=== PATIENT | female | born 1945 | race Caucasian/White ===

== ENCOUNTER → 2023-04-18 12:51 | Outpatient (REF) | payer MEDICARE, BC, SELFPAY ==
[2023-04-18 13:35] LABS: % Basophils 0.8 % (0-2); % Eosinophils 1.5 % (0-6); % Immature Granulocytes 0.4 % (0-0.5); % Lymphocytes 41.7 % (20.5-51.1); % Monocytes 7.6 % (1.7-9.3); Absolute Basophils 0.1 10^3/uL (0-0.2); Absolute Eosinophils 0.1 10^3/uL (0-0.7); Absolute Monocytes 0.5 10^3/uL (0.1-0.6); Absolute Neutrophils 3.4 10^3/uL (1.4-6.5); Hematocrit 42.5 % (37.0-47.0); Hemoglobin 14.3 g/dL (12.0-16.0); Mean Corp Hgb Conc. 33.6 g/dL (33.0-37.0); Mean Corpuscular Hgb 28.9 pg (27.0-31.0); Mean Platelet Volume 10.3 fL (7.4-10.4); Nucleated Red Blood Cells % 0 %; Platelet Count 220 10^3/uL (130-400); Red Blood Cell Count 4.94 10^6/uL (4.20-5.40); White Blood Cell Count 7.1 10^3/uL (4.8-10.8)
[2023-04-18 14:29] LABS: Glycohemoglobin (HgbA1c) 6.6 % (4.0-5.6)
[2023-04-18 14:46] LABS: Microalbumin, Random Urine 1.5 mg/dl (0.6-1.7)
[2023-04-18 15:06] LABS: ALT (SGPT) 52 U/L (0-35); AST (SGOT) 42 U/L (14-36); Albumin 4.3 g/dl (3.5-5.0); Alkaline Phosphatase 58 U/L (38-126); Blood Urea Nitrogen 22 mg/dl (7-17); Calcium 10.1 mg/dl (8.4-10.2); Carbon Dioxide 27 mmol/L (22-30); Chloride 99 mmol/L (98-107); Glucose 118 mg/dl (70-99); HDL Cholesterol 39 mg/dl; Iron 90 ug/dl (37-170); LDL Cholesterol, Calculated 53 mg/dl; Potassium 4.7 mmol/L (3.5-5.1); Sodium 140 mmol/L (135-145); Total Bilirubin 0.7 mg/dl (0.2-1.3); Total Cholesterol 146 mg/dl (50-199); Total Protein 7.1 g/dl (6.3-8.2); Triglyceride 272 mg/dl (10-149); Very Low Density Lipoprotein 54 mg/dl (0-30); eGFR > 60.00
[2023-04-18 15:16] LABS: Percent Saturation 24 % (20-50); Total Iron Binding Capacity 370 ug/dl (265-497)
== END ==
LOC: REG 12:51
PROVIDERS: ATTENDING PHYSICIAN Physician Assistant Medical
DX: Z00.01 Encounter for general adult medical examination with abnormal findings (principal); D68.59 Other primary thrombophilia; E11.59 Type 2 diabetes mellitus with other circulatory complications; D50.8 Other iron deficiency anemias
CPT/HCPCS: 36415; 80053; 80061; 82043; 82570; 82728; 83036; 83540; 83550; 85025

== ENCOUNTER → 2023-04-19 15:17 | Outpatient (REF) | payer MEDICARE, BC, SELFPAY | LOC: HWRAD 15:17 | PROVIDERS: ATTENDING PHYSICIAN Physician Assistant Medical | DX: S09.90XA Unspecified injury of head, initial encounter (principal) | CPT/HCPCS: 70450 ==

== ENCOUNTER → 2023-09-14 09:15 | Outpatient (REF) | payer MEDICARE, BC, SELFPAY ==
[2023-09-14 11:16] LABS: ALT (SGPT) 58 U/L (0-35); AST (SGOT) 44 U/L (14-36); Albumin 4.5 g/dl (3.5-5.0); Alkaline Phosphatase 77 U/L (38-126); Blood Urea Nitrogen 22 mg/dl (7-17); Calcium 9.9 mg/dl (8.4-10.2); Carbon Dioxide 25 mmol/L (22-30); Chloride 103 mmol/L (98-107); Glucose 139 mg/dl (70-99); Potassium 4.8 mmol/L (3.5-5.1); Sodium 141 mmol/L (135-145); Total Bilirubin 0.6 mg/dl (0.2-1.3); Total Protein 7.1 g/dl (6.3-8.2); eGFR > 60.00
[2023-09-14 11:42] LABS: Glycohemoglobin (HgbA1c) 7.1 % (4.0-5.6)
== END ==
LOC: REG 09:15
PROVIDERS: ATTENDING PHYSICIAN Internal Medicine; FAMILY PHYSICIAN Physician Assistant Medical
DX: Z00.01 Encounter for general adult medical examination with abnormal findings (principal); D68.59 Other primary thrombophilia; E11.59 Type 2 diabetes mellitus with other circulatory complications; D50.8 Other iron deficiency anemias
CPT/HCPCS: 36415; 80053; 83036

== ENCOUNTER → 2023-11-15 13:27 | Outpatient (REF) | payer MEDICARE, BC, SELFPAY | LOC: RAD 13:27 | PROVIDERS: ATTENDING PHYSICIAN Physician Assistant Medical | DX: M25.561 Pain in right knee (principal) | CPT/HCPCS: 73564 ==

== ENCOUNTER 2023-12-12 10:46 | Emergency (ER) | payer MEDICARE, BC, SELFPAY ==
[2023-12-12 11:15] VITALS: BP 150/93
[2023-12-12 11:30] VITALS: BMI 28.7
--- NOTE | 2023-12-12 11:40 | ED.GENMED ---
History of Present Illness
General
Chief Complaint: Chest Pain
Source: patient
Exam Limitations: none
Time Seen by Provider: 12/12/23 11:19
Nursing documentation reviewed up to this point in time: agreed with
History of Present Illness
History of Present Illness:
Patient is a pleasant 78-year-old female who reports intermittent left upper abdominal pain rating into her left back since yesterday. Patient reports that symptoms are mild and last for a second at a time and go away completely. Patient reports
at times it seems to occur after eating. Patient denies nausea and vomiting. She reports that she gets diarrhea once in a while which she attributes to her metformin. Patient denies specific chest pain, shortness of breath, dizziness and
sweating. Patient reports she is here to make sure that her symptoms are not related to her heart. Patient reports she has no symptoms at all at this time nor any pain. Patient reports that when she takes a deep breath, she is not able to
reproduce the discomfort.
Past History
Past History
ED Past Medical History: GERD, Hypercholesterolemia, NIDDM, Psychiatric (anxiety), Other (Pulmonary Embolism. DVT) and Other (dvt)
ED Past Surgical History: Cholecystectomy, Gynecological (Hysterectomy) and Orthopedic (L total Knee replacement; right and left rotator cuff repairs)
Social History
Tobacco: Non-smoker
Alcohol: Occasional
Drug: None
Personal:
Living: assisted living
Employment: Other
Family History
Family History: Other
Review of Systems
Review of Systems
Allergies reviewed?: Yes
All Other Systems: ROS reviewed and negative except as documented in HPI and ROS
Constitutional: Reports no symptoms
EENT: Reports no symptoms
Respiratory: Reports no symptoms
Cardiac: Reports no symptoms
ABD/GI: Reports abdominal pain and diarrhea
: Reports no symptoms
Musculoskeletal: Reports no symptoms
Skin: Reports no symptoms
Neurological: Reports no symptoms
Endocrine: Reports no symptoms
Hematologic/Lymphatic: Reports no symptoms
Psychiatric: Reports no symptoms
Phy Exam
Physical Exam
Physical Exam:
Physical Exam
General: no apparent distress, not acutely ill. Very well and comfortable appearing, smiling and conversational
Neck: supple. no meningeal signs. normal psoterior pharynx
Heart: s1/s2 regular rate and rhythm, no murmur. equal radial pulses.
Lungs: no acute respiratory distress. clear bilaterally
Abdomen: normal bowel sounds. not tender. no CVAT. Soft, nondistended, no pulsatile mass
Neuro: alert and oriented. no focal neurological deficits
Skin: no rash
Psychiatric: well kept. interactive and cooperative
Extremities: no edema. no calf tenderness. negative homans. good distal pulses
Scores
Heart Score for Chest Pain Patients
STEMI patient?: Not applicable
Course
Orders/Labs/Results
Orders:
Orders
12/12/23 10:49
ECG [Electrocardiogram (*1)] Urgent
Reason for Study: Chest Pain
EKG- Treatment ONCE
12/12/23 11:46
Complete Blood Count/With Diff Urgent
12/12/23 13:13
Comprehensive Metabolic Panel Urgent
Lipase Urgent
Troponin I Urgent
Abnormal Lab Results
12/12/23 12/12/23
11:46 13:13
MPV 10.5 H fL
(7.4-10.4)
BUN 19 H mg/dl
(7-17)
Glucose 110 H mg/dl
(70-99)
AST 38 H U/L
(14-36)
ALT 60 H U/L
(0-35)
12/12/23 11:46
12/12/23 13:13
Vital Signs
Initial and Last Documented VS:
Initial Vital Signs
Temp Pulse Resp BP Pulse Ox
97.5 F 76 18 150/93 96
12/12/23 11:15 12/12/23 11:15 12/12/23 11:15 12/12/23 11:15 12/12/23 11:15
Last Documented Vital Signs
Temp Pulse Resp BP Pulse Ox
97.5 F 76 15 123/88 95
12/12/23 11:15 12/12/23 13:45 12/12/23 13:45 12/12/23 13:00 12/12/23 13:45
MDM/Problems Addressed
Differential Diagnosis Includes:
Gastritis, esophageal spasm, acute pancreatitis, small bowel obstruction, aortic dissection
MDM/Problems Addressed:
Patient presents with acute left upper quadrant pain
Chronic conditions affecting care:
GERD
Acute Exacerbation and/or Progression of Chronic Illness:
Patient's presentation is likely an exacerbation of GERD
*Pulse Oximetry
Patient hypoxic: no
*EKG
Interpreted by ED Provider?: Yes
Interpretation: normal
Comparison EKG: no changes
Rate: normal
Rhythm: sinus
[place]: left axis deviation
Interval: normal interval
QRS Pattern: normal QRS
Ischemia: no ischemia
*Quality Director Interpretation
Rate: normal
Interpretation: normal
Rhythm: sinus
*Critical Care Note
Total Time (30-74mins, 75-104mins- exclusive of procedures): Not Applicable
Data Reviewed
Review of Other/Old Records Reveals: Progress Notes (Office note reviewed from Dr. Moreno from GI from 2019 which shows the patient has a history of GI bleed, GERD and gastritis)
Source: patient
Patient Management
Social determinants of health affecting care: Living situation and Strong social support
Update Note
Update Note:
Patient remains asymptomatic and pain-free for hours in the emergency department. EKG appears nonischemic. Troponin is normal. unlikely to be acute coronary syndrome. Given patient is pain-free, it is unlikely to be aortic dissection. Patient
has had no nausea vomiting to suggest small bowel obstruction.
ED Attending Note
-
Portions of this chart may have been created with voice recognition software.� Occasional wrong word or��sound alike� substitutions may have occurred due to the inherent limitations of voice recognition software.
Discharge Plan
Departure
Patient with high blood pressure during this ER visit?: Yes
Condition: Good
Covid-19: Not Applicable
Discharge Problem:
Abdominal pain, acute, left upper quadrant
Instructions: Acid Reflux and GERD in Adults (DC), BLOOD PRESSURE
Prescriptions:
No Action
amitriptyline 10 MG tablet
10 mg PO HS
escitalopram oxalate 10 MG tablet
20 mg PO BID
clonazepam 0.5 MG tablet
0.25 mg PO HS
glucosamine lundberg 2KCl-chondroit 1 EACH tablet
1 ea PO HS
glycopyrrolate 1 mg Tablet
1 mg PO DAILY
omeprazole [Prilosec] 20 mg Capsule,Delayed Release(Dr/Ec)
20 mg PO DAILY
propranolol 20 mg Tablet
20 mg PO BID
cholecalciferol (vitamin D3) [Vitamin D3] 25 mcg (1,000 unit) Capsule
25 mcg PO DAILY
Xarelto 10 mg Tablet
10 mg PO DAILY
ferrous sulfate [Feosol] 325 MG tablet
325 mg PO HS
atorvastatin [Lipitor] 40 mg Tablet
40 mg PO DAILY
biotin 800 mcg Tablet
800 mcg PO DAILY
ascorbic acid (vitamin C) [Vitamin C] 500 mg Tablet
500 mg PO DAILY
Referrals:
Aixa Bernard PA-C [Family Provider] -
Activity Restrictions/Additional Instructions:
Please restart your omeprazole
Interventions
Interventions:
*Risk Screen - Suicide Last Done: 12/12/23 11:15
*General Assessment Last Done: 12/12/23 11:15
*Neglect/Abuse Screening Last Done: 12/12/23 11:15
*ED COVID-19 Vaccine History Last Done: 12/12/23 11:33
ED- Cardiac Assessment Last Done: 12/12/23 11:32
Discharge Date and Time
Print Language: MACEDONIAN
[2023-12-12 11:55] LABS: % Basophils 0.9 % (0-2); % Eosinophils 2.1 % (0-6); % Immature Granulocytes 0.5 % (0-0.5); % Lymphocytes 36.9 % (20.5-51.1); % Monocytes 6.1 % (1.7-9.3); % Neutrophils 53.5 % (42.2-75.2); Absolute Basophils 0.1 10^3/uL (0-0.2); Absolute Eosinophils 0.2 10^3/uL (0-0.7); Absolute Lymphocytes 2.8 10^3/uL (1.2-3.4); Absolute Monocytes 0.5 10^3/uL (0.1-0.6); Absolute Neutrophils 4.1 10^3/uL (1.4-6.5); Hematocrit 40.8 % (37.0-47.0); Hemoglobin 13.7 g/dL (12.0-16.0); Mean Corp Hgb Conc. 33.6 g/dL (33.0-37.0); Mean Corpuscular Hgb 28.8 pg (27.0-31.0); Mean Corpuscular Volume 85.7 fL (81.0-99.0); Mean Platelet Volume 10.5 fL (7.4-10.4); Nucleated Red Blood Cells % 0 %; Platelet Count 183 10^3/uL (130-400); Red Blood Cell Count 4.76 10^6/uL (4.20-5.40); Red Cell Dist. Width 13.8 % (11.5-14.5); White Blood Cell Count 7.7 10^3/uL (4.8-10.8)
[2023-12-12 12:00] VITALS: BP 140/82
[2023-12-12 13:00] VITALS: BP 123/88
[2023-12-12 13:39] LABS: ALT (SGPT) 60 U/L (0-35); AST (SGOT) 38 U/L (14-36); Albumin 4.4 g/dl (3.5-5.0); Alkaline Phosphatase 75 U/L (38-126); Blood Urea Nitrogen 19 mg/dl (7-17); Calcium 10.1 mg/dl (8.4-10.2); Carbon Dioxide 28 mmol/L (22-30); Chloride 99 mmol/L (98-107); Estimated Creatinine Clearance 63 ml/min; Glucose 110 mg/dl (70-99); Lipase 51 U/L (23-300); Potassium 4.7 mmol/L (3.5-5.1); Sodium 139 mmol/L (135-145); Total Bilirubin 0.4 mg/dl (0.2-1.3); eGFR > 60.00
[2023-12-12 13:50] LABS: Troponin I < 0.012 ng/ml
== END 2023-12-12 14:00 | disposition home or self-care (01) ==
LOC: EMR 10:46
PROVIDERS: EMERGENCY PHYSICIAN Emergency Medicine; FAMILY PHYSICIAN Physician Assistant Medical
DX: R10.12 Left upper quadrant pain (principal); K21.9 Gastro-esophageal reflux disease without esophagitis; E78.00 Pure hypercholesterolemia, unspecified; E11.9 Type 2 diabetes mellitus without complications; F41.9 Anxiety disorder, unspecified; Z86.711 Personal history of pulmonary embolism; Z86.718 Personal history of other venous thrombosis and embolism; Z90.49 Acquired absence of other specified parts of digestive tract; Z90.710 Acquired absence of both cervix and uterus; Z96.659 Presence of unspecified artificial knee joint
CPT/HCPCS: 99283; 80053; 83690; 84484; 85025; 93005

== ENCOUNTER → 2024-02-03 12:37 | Outpatient (REF) | payer MEDICARE, BC, SELFPAY ==
[2024-02-03 13:42] LABS: % Basophils 0.7 % (0-2); % Eosinophils 1.1 % (0-6); % Immature Granulocytes 0.6 % (0-0.5); % Lymphocytes 30.1 % (20.5-51.1); % Monocytes 6.3 % (1.7-9.3); % Neutrophils 61.2 % (42.2-75.2); Absolute Basophils 0.1 10^3/uL (0-0.2); Absolute Eosinophils 0.1 10^3/uL (0-0.7); Absolute Immature Granulocytes 0.1 10^3/uL (0-0.05); Absolute Lymphocytes 2.7 10^3/uL (1.2-3.4); Absolute Monocytes 0.6 10^3/uL (0.1-0.6); Absolute Neutrophils 5.4 10^3/uL (1.4-6.5); Hematocrit 44.9 % (37.0-47.0); Hemoglobin 14.4 g/dL (12.0-16.0); Mean Corp Hgb Conc. 32.1 g/dL (33.0-37.0); Mean Corpuscular Hgb 27.8 pg (27.0-31.0); Mean Corpuscular Volume 86.7 fL (81.0-99.0); Mean Platelet Volume 10.6 fL (7.4-10.4); Nucleated Red Blood Cells % 0 %; Platelet Count 240 10^3/uL (130-400); Red Blood Cell Count 5.18 10^6/uL (4.20-5.40); Red Cell Dist. Width 14.5 % (11.5-14.5); White Blood Cell Count 8.9 10^3/uL (4.8-10.8)
[2024-02-03 14:31] LABS: ALT (SGPT) 52 U/L (0-35); AST (SGOT) 34 U/L (14-36); Albumin 4.9 g/dl (3.5-5.0); Alkaline Phosphatase 76 U/L (38-126); Blood Urea Nitrogen 21 mg/dl (7-17); Carbon Dioxide 22 mmol/L (22-30); Chloride 101 mmol/L (98-107); Glucose 123 mg/dl (70-99); Iron 97 ug/dl (37-170); Potassium 4.7 mmol/L (3.5-5.1); Sodium 141 mmol/L (135-145); Total Bilirubin 0.5 mg/dl (0.2-1.3); Total Protein 8.1 g/dl (6.3-8.2); eGFR > 60.00
[2024-02-03 14:37] LABS: Glycohemoglobin (HgbA1c) 7.1 % (4.0-5.6)
[2024-02-03 14:43] LABS: Percent Saturation 25 % (20-50); Total Iron Binding Capacity 375 ug/dl (265-497)
[2024-02-03 14:59] LABS: TSH Reflex To Free T4 1.07 uIU/ml (0.47-4.68)
[2024-02-03 15:18] LABS: Vitamin B12 726 pg/ml (239-931)
== END ==
LOC: REG 12:37
PROVIDERS: ATTENDING PHYSICIAN Physician Assistant Medical
DX: R41.3 Other amnesia (principal); E11.59 Type 2 diabetes mellitus with other circulatory complications; D50.8 Other iron deficiency anemias
CPT/HCPCS: 36415; 80053; 82607; 82728; 83036; 83540; 83550; 84443; 85025; 86618

== ENCOUNTER → 2024-05-10 11:17 | Outpatient (REF) | payer MEDICARE, BC, SELFPAY | LOC: RAD 11:17 | PROVIDERS: ATTENDING PHYSICIAN Physician Assistant Surgical; FAMILY PHYSICIAN Physician Assistant Medical | DX: M25.512 Pain in left shoulder (principal) | CPT/HCPCS: 73030 ==

== ENCOUNTER → 2024-05-25 12:59 | Outpatient (REF) | payer MEDICARE, BC, SELFPAY ==
[2024-05-25 14:04] LABS: % Basophils 0.9 % (0-2); % Immature Granulocytes 0.9 % (0-0.5); % Lymphocytes 31.2 % (20.5-51.1); % Monocytes 5.6 % (1.7-9.3); % Neutrophils 59.4 % (42.2-75.2); Absolute Basophils 0.1 10^3/uL (0-0.2); Absolute Eosinophils 0.2 10^3/uL (0-0.7); Absolute Immature Granulocytes 0.1 10^3/uL (0-0.05); Absolute Lymphocytes 3.2 10^3/uL (1.2-3.4); Absolute Monocytes 0.6 10^3/uL (0.1-0.6); Hematocrit 41.9 % (37.0-47.0); Hemoglobin 13.7 g/dL (12.0-16.0); Mean Corp Hgb Conc. 32.7 g/dL (33.0-37.0); Mean Corpuscular Hgb 28.3 pg (27.0-31.0); Mean Corpuscular Volume 86.6 fL (81.0-99.0); Nucleated Red Blood Cells % 0 %; Platelet Count 184 10^3/uL (130-400); Red Blood Cell Count 4.84 10^6/uL (4.20-5.40); Red Cell Dist. Width 14.3 % (11.5-14.5); White Blood Cell Count 10.1 10^3/uL (4.8-10.8)
[2024-05-25 14:33] LABS: ALT (SGPT) 67 U/L (0-35); AST (SGOT) 35 U/L (14-36); Albumin 4.8 g/dl (3.5-5.0); Alkaline Phosphatase 78 U/L (38-126); Blood Urea Nitrogen 21 mg/dl (7-17); Carbon Dioxide 28 mmol/L (22-30); Chloride 97 mmol/L (98-107); Glucose 117 mg/dl (70-99); HDL Cholesterol 50 mg/dl; Iron 144 ug/dl (37-170); LDL Cholesterol, Calculated 72 mg/dl; Potassium 4.9 mmol/L (3.5-5.1); Sodium 138 mmol/L (135-145); Total Bilirubin 0.8 mg/dl (0.2-1.3); Total Cholesterol 162 mg/dl (50-199); Total Protein 7.5 g/dl (6.3-8.2); Triglyceride 200 mg/dl (10-149); Very Low Density Lipoprotein 40 mg/dl (0-30); eGFR > 60.00
[2024-05-25 14:45] LABS: Percent Saturation 41 % (20-50); Total Iron Binding Capacity 350 ug/dl (265-497)
[2024-05-25 14:48] LABS: Microalbumin, Random Urine 1.7 mg/dl (0.6-1.7); Microalbumin/creatinine Ratio 15.1 mg/g
[2024-05-26 09:26] LABS: Glycohemoglobin (HgbA1c) 7.6 % (4.0-5.6)
== END ==
LOC: REG 12:59
PROVIDERS: ATTENDING PHYSICIAN Physician Assistant Medical
DX: D50.8 Other iron deficiency anemias (principal); E11.59 Type 2 diabetes mellitus with other circulatory complications; Z00.01 Encounter for general adult medical examination with abnormal findings; D68.59 Other primary thrombophilia
CPT/HCPCS: 36415; 80053; 80061; 82043; 82570; 82728; 83036; 83540; 83550; 85025

== ENCOUNTER → 2024-06-18 14:10 | Outpatient (REF) | payer MEDICARE, BC, SELFPAY | LOC: HWWDC 14:10 | PROVIDERS: ATTENDING PHYSICIAN Physician Assistant Medical | DX: Z12.31 Encounter for screening mammogram for malignant neoplasm of breast (principal) | CPT/HCPCS: 77063; 77067 ==

== ENCOUNTER 2024-07-23 07:47 | Inpatient (IN) | payer MEDICARE, BC, SELFPAY ==
[2024-07-20 14:09] VITALS: BMI 28.8
--- NOTE | 2024-07-20 14:11 | ED.CVA ---
History of Present Illness
General
Chief Complaint: CVA/TIA Symptoms
Source: patient and ambulance crew
Exam Limitations: none
Time Seen by Provider: 07/20/24 14:09
Onset of Stroke Symptoms
Onset of symptoms known: Yes
Date of onset of symptoms: 07/20/24
History of Present Illness
History of Present Illness:
See MDM
Past History
Past History
ED Past Medical History: GERD, Hypercholesterolemia, NIDDM, Psychiatric (anxiety), Other (Pulmonary Embolism. DVT) and Other (dvt)
ED Past Surgical History: Cholecystectomy, Gynecological (Hysterectomy) and Orthopedic (L total Knee replacement; right and left rotator cuff repairs)
Social History
Tobacco: Non-smoker
Alcohol: Occasional
Drug: None
Personal:
Living: assisted living
Employment: Other
Family History
Family History: Other
Phy Exam
Physical Exam
Physical Exam:
See MDM
NIH Stroke Score
Level of Consciousness: 0 - Alert
LOC questions: 0-Answers both correctly
LOC Commands: 0-Performs both correctly
Best Gaze: 0-Normal
Visual Santos: 0=Normal, no visual loss
Facial palsy: 0=Normal, symmetrical
Motor - Right Arm: 0=No drift 10 seconds
Motor - Left Arm: 0=No drift 10 seconds
Motor - Right Le-No drift 5 seconds
Motor - Left Le-No drift 5 seconds
Limb Ataxia: 0-Absent
Sensation: 0-Normal
Best Language: 1-Mild aphasia
Dysarthria: 0-Normal
Extinction and Inattention: 0-No abnormality
Total Score:: 1
Course
Orders/Labs/Results
Orders:
Orders
07/20/24 14:10
Electrocardiogram (*1) Stat
Reason for Study: Other
Other Reason for Exam: neuro symptoms
CT HEAD STROKE ALERT W/o Cont Urgent
Comment:
Reason For Exam: aphasia
CT HEAD/NECK ANG STROKE ALERT Urgent
Comment:
Reason For Exam: aphasia
NEUROLOGY CONSULT Urgent
Consulting Provider: Andria Bajwa
Was physician already notified: Yes
Cardiac Monitoring- Treatment ONCE
EKG- Treatment ONCE
07/20/24 14:11
CT Brain Perfusion Urgent
Comment:
Reason For Exam: aphasia
07/20/24 14:18
Comprehensive Metabolic Panel Urgent
PTT Urgent
Prothrombin Time Urgent
Troponin I Urgent
07/20/24 14:19
Complete Blood Count/With Diff Urgent
07/20/24 15:09
STOOL [C difficile Antigen & Toxins] Urgent
CHEPE Source: Feces/Stool
Specimen Description:
Stool Culture Urgent
CHEPE Source: Feces/Stool
Specimen Description:
Aspirin Chewable [Low Strength Aspirin] 81 mg PO NOW STA
Abnormal Lab Results
07/20/24 07/20/24 07/20/24
14:12 14:18 14:19
RDW 15.5 H %
(11.5-14.5)
MPV 10.7 H fL
(7.4-10.4)
Abs Immat Gran (auto) 0.1 H 10^3/uL
(0-0.05)
Absolute Lymphs (auto) 3.5 H 10^3/uL
(1.2-3.4)
Absolute Monos (auto) 0.9 H 10^3/uL
(0.1-0.6)
Immature Gran % 1.0 H %
(0-0.5)
PT 17.7 H Sec
(11.4-14.6)
BUN 19 H mg/dl
(7-17)
Glucose 151 H mg/dl
(70-99)
AST 45 H U/L
(14-36)
ALT 75 H U/L
(0-35)
POC Glucose 170 H mg/dl
(70-99)
07/20/24 14:19
07/20/24 14:18
Vital Signs
Initial and Last Documented VS:
Initial Vital Signs
Temp Pulse Resp Pulse Ox
98.4 F 87 20 96
07/20/24 14:10 07/20/24 14:10 07/20/24 14:10 07/20/24 14:10
Last Documented Vital Signs
Temp Pulse Resp BP Pulse Ox
98.4 F 87 20 144/76 96
07/20/24 14:10 07/20/24 14:10 07/20/24 14:10 07/20/24 14:14 07/20/24 14:10
MDM/Problems Addressed
Differential Diagnosis Includes:
HPI and MDM Narrative:
78-year-old female presenting as a possible stroke alert. EMS called prior to arrival indicating active strokelike symptoms. Apparently, patient developed right leg heaviness around 11 AM. This was not associated with slurred speech. 911 was
called. EMS indicating that symptoms are improving somewhat. On arrival, patient evaluated by myself. She does have word finding issues placing her NIH stroke scale at 1. She is on Xarelto and states her last dose was this morning. Based on the
Xarelto use, patient is not a TNK candidate. Based on the active aphasia, stroke alert called. Neurology made aware
Physical exam
General: Well appearing and non-toxic
HEENT: protecting airway
Neck: appears supple
CV: No evidence of cyanosis. Regular rate and rhythm
Resp: No accessory muscle use
Abd: Non-distended
Extremities: No deformities
Neuro: alert. Aphasia. NIH stroke scale 1
Psych: Normal affect
Skin: Intact
Problems Addressed including Acute and Chronic Conditions affecting care:
1. Aphasia
Acuity: acute
Prognosis: unstable
Details: Given active symptoms, report called. She is not a TNK candidate
Updates
3 PM on reassessment, all symptoms resolved. Case discussed with neurology again. Will start aspirin and admit
Differential Diagnosis (but not limited to): Stroke, TIA, intracranial hemorrhage
Testing considered: Urinalysis
Drug therapy (if applicable): OTC meds, please see d/c instruction regarding Rx drugs
Amount and/or Complexity of Data Reviewed
Clinical info obtained from: Patient
External data reviewed: N/A
Labs I independently reviewed (but not limited to): White blood cell count normal
Radiology: The CT scan was personally and independently reviewed. In addition, official CT report reviewed.
Pulse Ox: not hypoxic
EKG independently reviewed: N/A
Environmental Program Manager: Sinus rhythm
Critical Care: N/A
Risk of Complication:
Social Determinants of health: Good social support
Discussed with other providers: Neurologist, hospitalist
Escalation of Care includes Admit/Obs: Given TIA with speech involvement, will admit
Occasional wrong word or 'sound a like' substitutions may have occurred due to the inherent limitations of voice recognition software. Read the chart carefully and recognize, using context, where substitutions have occurred.
*Critical Care Note
Total Time (30-74mins, 75-104mins- exclusive of procedures): Not Applicable
ED Attending Note
-
Portions of this chart may have been created with voice recognition software.� Occasional wrong word or��sound alike� substitutions may have occurred due to the inherent limitations of voice recognition software.
Discharge Plan
Departure
Patient Disposition: Admit
Date of Disposition: 07/20/24
Time of Disposition: 15:11
Admit to: Telemetry
Presentation/result/management discussed w/ accepting MD/DO: Hospitalist
Discharge Problem:
Brain TIA
Prescriptions:
No Action
amitriptyline 10 MG tablet
10 mg PO HS
escitalopram oxalate 10 MG tablet
20 mg PO BID
clonazepam 0.5 MG tablet
0.25 mg PO HS
glucosamine lundberg 2KCl-chondroit 1 EACH tablet
1 ea PO HS
glycopyrrolate 1 mg Tablet
1 mg PO DAILY
omeprazole [Prilosec] 20 mg Capsule,Delayed Release(Dr/Ec)
20 mg PO DAILY
propranolol 20 mg Tablet
20 mg PO BID
cholecalciferol (vitamin D3) [Vitamin D3] 25 mcg (1,000 unit) Capsule
25 mcg PO DAILY
Xarelto 10 mg Tablet
10 mg PO DAILY
ferrous sulfate [Feosol] 325 MG tablet
325 mg PO HS
atorvastatin [Lipitor] 40 mg Tablet
40 mg PO DAILY
biotin 800 mcg Tablet
800 mcg PO DAILY
ascorbic acid (vitamin C) [Vitamin C] 500 mg Tablet
500 mg PO DAILY
Interventions
Interventions:
ED- Pulmonary Assessment Last Done: 07/20/24 14:14
ED- Neurological Assessment Last Done: 07/20/24 14:14
ED- Cardiac Assessment Last Done: 07/20/24 14:14
Discharge Date and Time
Print Language: AUSTRIAN
[2024-07-20 14:14] VITALS: BP 144/76
[2024-07-20 14:14] LABS: Glucose - Point of Care 170 mg/dl (70-99)
--- NOTE | 2024-07-20 14:23 | CON.NEURO ---
Consultation
Order
Date of Consultation: 07/20/24
Requesting Provider: Jeffrey Redd DO
Reason for Consult: Stroke alert
Called in: 14:09
Neurology Consultation Note.
HPI:This is a 78-year-old ambidextrous woman who presented to [facility] on July 20, 2024 with right leg weakness and language dysfunction.
She reports that her legs started to 'lose weight,' she could hardly walk because of right leg weakness
The patient states that she has 'never spoken like this' before. She also experienced diarrhea prior to the onset of her neurological symptoms. The patient recalls that she was preparing for an 11 o'clock appointment when the symptoms began. She had
difficulty completing her usual tasks, such as putting away items and preparing for her exercise program.
ER VS:144/76, 87, 20, afebrile.
PDMP:clonazepam 0.5 mg 45 tablets filled in on 05/22/2024, 07/15/2024.
Labs:FS 170.
CT head wo contrast-Moderate atrophy
PMH: PE/DVT, HTN, DLP, DM, MDD, KYUNG, Hiatal hernia, hyperparathyroidism , GERD, OA, migraines
PSH: L TKA, cholecystectomy, ROSARIO/BSO, R Rotator cuff repair, BL cataract surgery
SH:, lives at [place], retired, nonsmoker
All:PNC, Erythromycin
ROS: Limited due to dysphasia
NIH Stroke Scale
1A Level of Consciousness: 0/3
1B LOC Questions: 0/2
1C LOC Commands: 0/2
2 Best Gaze: 0/2
3 Visual: 0/3
4 Facial Palsy: 0/3
5A Motor Arm LEFT: 0/4
5B Motor Arm RIGHT: 0/4
6A Motor Leg LEFT: 0/4
6B Motor Leg RIGHT: 0/4
7 Limb Ataxia: 0/2
8 Sensory: 0/2
9 Best Language: 2/3
10 Dysarthria: 0/2
11 Extinction/Inattention: 0/2
Assessment and Plan:
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
II. HTN, DM
III.KYUNG
-Continue Telemetry monitoring
-Hold Eliquis and start aspirin 81 mg once a day until brain MRI is completed
-Please follow-up CTA head and neck
-PT.
-DVT prophylaxis.
I personally reviewed all radiology and labs along with past medical records pertinent to current medical problems. Total time spent in patient care is 55 minutes.
Thank you for allowing us to participate in the care of this patient. We will continue to follow. Please do not hesitate to contact us with any questions or concerns.
Subjective/Objective
Subjective Data
Date of Service: July 20, 2024
Objective Data
Vital Signs
Temp Pulse Resp BP Pulse Ox
36.9 C 87 20 144/76 96
07/20/24 14:10 07/20/24 14:10 07/20/24 14:10 07/20/24 14:14 07/20/24 14:10
Patient Allergies
erythromycin base Allergy (Verified 09/05/22 18:21)
'Shakey'
Penicillins Allergy (Verified 09/05/22 18:21)
Headache
Medications
-
Home Medications
�Medication �Instructions �Recorded
amitriptyline 10 mg tablet 10 mg PO HS 08/16/15
escitalopram oxalate 10 mg tablet 20 mg PO BID 08/16/15
clonazepam 0.5 mg tablet 0.25 mg PO HS 12/06/18
glucosamine sulf dipotassium Cl 1 ea PO HS 12/15/18
500 mg-chondroitin sulf 400 mg
tablet
ascorbic acid (vitamin C) 500 mg 500 mg PO DAILY 09/03/22
tablet (Vitamin C)
atorvastatin 40 mg tablet (Lipitor) 40 mg PO DAILY 09/03/22
biotin 800 mcg tablet 800 mcg PO DAILY 09/03/22
cholecalciferol (vitamin D3) 25 25 mcg PO DAILY 09/03/22
mcg (1,000 unit) capsule (Vitamin
D3)
ferrous sulfate 325 mg (65 mg 325 mg PO HS 09/03/22
iron) tablet (Feosol)
glycopyrrolate 1 mg tablet 1 mg PO DAILY 09/03/22
omeprazole 20 mg capsule,delayed 20 mg PO DAILY 09/03/22
release
propranolol 20 mg tablet 20 mg PO BID 09/03/22
rivaroxaban 10 mg tablet (Xarelto) 10 mg PO DAILY 09/03/22
Vital Signs and Labs
-
Vital Signs and Labs:
Vital Signs
Temp Pulse Resp BP Pulse Ox
36.9 C 87 20 144/76 96
07/20/24 14:10 07/20/24 14:10 07/20/24 14:10 07/20/24 14:14 07/20/24 14:10
Lab Results
07/20/24 14:19
07/20/24 14:18
PT 17.7 Sec (11.4-14.6) H 07/20/24 14:18
INR 1.43 07/20/24 14:18
APTT 26.5 Sec (23.4-35.0) 07/20/24 14:18
Sodium 142 mmol/L (135-145) 07/20/24 14:18
Potassium 4.9 mmol/L (3.5-5.1) 07/20/24 14:18
BUN 19 mg/dl (7-17) H 07/20/24 14:18
Glucose 151 mg/dl (70-99) H 07/20/24 14:18
Calcium 10.0 mg/dl (8.4-10.2) 07/20/24 14:18
Home Medications
-
Home Medications
amitriptyline 10 mg tablet 10 mg PO HS 08/16/15
escitalopram oxalate 10 mg tablet 20 mg PO BID 08/16/15
clonazepam 0.5 mg tablet 0.25 mg PO HS 12/06/18
glucosamine sulf dipotassium Cl 500 mg-chondroitin sulf 400 mg tablet 1 ea PO HS 12/15/18
ascorbic acid (vitamin C) 500 mg tablet (Vitamin C) 500 mg PO DAILY 09/03/22
atorvastatin 40 mg tablet (Lipitor) 40 mg PO DAILY 09/03/22
biotin 800 mcg tablet 800 mcg PO DAILY 09/03/22
cholecalciferol (vitamin D3) 25 mcg (1,000 unit) capsule (Vitamin D3) 25 mcg PO DAILY 09/03/22
ferrous sulfate 325 mg (65 mg iron) tablet (Feosol) 325 mg PO HS 09/03/22
glycopyrrolate 1 mg tablet 1 mg PO DAILY 09/03/22
omeprazole 20 mg capsule,delayed release 20 mg PO DAILY 09/03/22
propranolol 20 mg tablet 20 mg PO BID 09/03/22
rivaroxaban 10 mg tablet (Xarelto) 10 mg PO DAILY 09/03/22
[2024-07-20 14:31] LABS: % Basophils 1.1 % (0-2); % Eosinophils 5.3 % (0-6); % Lymphocytes 34.4 % (20.5-51.1); % Monocytes 8.4 % (1.7-9.3); % Neutrophils 49.8 % (42.2-75.2); Absolute Basophils 0.1 10^3/uL (0-0.2); Absolute Eosinophils 0.5 10^3/uL (0-0.7); Absolute Immature Granulocytes 0.1 10^3/uL (0-0.05); Absolute Lymphocytes 3.5 10^3/uL (1.2-3.4); Absolute Monocytes 0.9 10^3/uL (0.1-0.6); Absolute Neutrophils 5.1 10^3/uL (1.4-6.5); Hematocrit 41.5 % (37.0-47.0); Hemoglobin 14.1 g/dL (12.0-16.0); Mean Corpuscular Hgb 29.1 pg (27.0-31.0); Mean Corpuscular Volume 85.6 fL (81.0-99.0); Mean Platelet Volume 10.7 fL (7.4-10.4); Nucleated Red Blood Cells % 0 %; Platelet Count 275 10^3/uL (130-400); Red Blood Cell Count 4.85 10^6/uL (4.20-5.40); Red Cell Dist. Width 15.5 % (11.5-14.5); White Blood Cell Count 10.3 10^3/uL (4.8-10.8)
[2024-07-20 14:36] LABS: APTT 26.5 Sec (23.4-35.0); INR 1.43; PT 17.7 Sec (11.4-14.6)
[2024-07-20 14:39] LABS: ALT (SGPT) 75 U/L (0-35); AST (SGOT) 45 U/L (14-36); Alkaline Phosphatase 64 U/L (38-126); Blood Urea Nitrogen 19 mg/dl (7-17); Carbon Dioxide 28 mmol/L (22-30); Chloride 102 mmol/L (98-107); Estimated Creatinine Clearance 63 ml/min; Glucose 151 mg/dl (70-99); Potassium 4.9 mmol/L (3.5-5.1); Sodium 142 mmol/L (135-145); Total Bilirubin 0.6 mg/dl (0.2-1.3); Total Protein 7.7 g/dl (6.3-8.2); eGFR > 60.00
[2024-07-20 14:51] LABS: Troponin I < 0.012 ng/ml
[2024-07-20 15:00] VITALS: BP 138/73
[2024-07-20] MEDS: LOW STRENGTH ASPIRIN 81 MG PO (15:20)
[2024-07-20] MEDS: ZOFRAN 4 MG IV (15:55)
[2024-07-20 16:00] VITALS: BP 155/75
[2024-07-20] MEDS: TYLENOL 650 MG PO (17:23)
--- NOTE | 2024-07-20 17:40 | HPS.HSE ---
Family Physician
-
Family Physician: Aixa Bernard PA-C
Chief Complaint
-
Right Leg Weakness and Speech Issue
History of Present Illness
78-year-old female with past medical history of PE/DVT, HTN, DLP, DM, Anxiety, Hiatal hernia, hyperparathyroidism, GERD, OA and migraines presented with right lower extremity weakness and speech issue/aphasia. She was outside at the gym when she
developed significant brown-colored diarrhea, several episodes, when she came home and apparently, patient developed right leg heaviness around 11 AM. Her symptoms improved since coming to the ER and resolved by the time I saw her later this
afternoon today. She denied any other symptoms or complaints.
Medical History
Past Medical History
Past Medical History: Reports Other (As per HPI above)
Past Surgical History: Reports Cholecystectomy, Gynocological (ROSARIO/BSO), Orthopedic (Left TKA; right and left rotator cuff repairs) and Other (Bilateral cataract surgery)
Social History
Tobacco: Non-smoker
Alcohol: Occasional
Drug: None
Family History
Family History: Not pertinent
Allergies / Home Medications
Allergies reflects when Allergies were last updated in [employer].
Home Medications with original date entered in [employer]
Allergy/Medication List:
Allergies
Allergy/AdvReac Type Severity Reaction Status Date / Time
erythromycin base Allergy 'Shakey' Verified 09/05/22 18:21
Penicillins Allergy Headache Verified 09/05/22 18:21
Home Medications
amitriptyline 10 mg tablet 10 mg PO HS 08/16/15
escitalopram oxalate 10 mg tablet 10 mg PO DAILY 08/16/15
clonazepam 0.5 mg tablet 0.25 mg PO HS 12/06/18
glucosamine sulf dipotassium Cl 500 mg-chondroitin sulf 400 mg tablet 1 ea PO HS 12/15/18
ascorbic acid (vitamin C) 500 mg tablet (Vitamin C) 500 mg PO DAILY 09/03/22
atorvastatin 40 mg tablet (Lipitor) 40 mg PO DAILY 09/03/22
cholecalciferol (vitamin D3) 25 mcg (1,000 unit) capsule (Vitamin D3) 25 mcg PO DAILY 09/03/22
ferrous sulfate 325 mg (65 mg iron) tablet (Feosol) 325 mg PO HS 09/03/22
glycopyrrolate 1 mg tablet 1 mg PO DAILY 09/03/22
omeprazole 20 mg capsule,delayed release 20 mg PO DAILY 09/03/22
propranolol 20 mg tablet 20 mg PO BID 09/03/22
rivaroxaban 10 mg tablet (Xarelto) 10 mg PO DAILY 09/03/22
clonazepam 0.5 mg tablet 0.5 mg PO BIDPRN PRN anxiety 07/20/24
metformin 500 mg tablet 500 mg PO BID 07/20/24
Review of Systems
-
A 12 point ROS was completed and negative except as noted: Yes
Physical Exam
Vital Signs
Vital Signs
Temp Pulse Resp BP Pulse Ox
98.4 F 85 17 155/75 96
07/20/24 14:10 07/20/24 16:15 07/20/24 16:15 07/20/24 16:00 07/20/24 16:15
Physical Exam
General: No Apparent Distress and Comfortable
HEENT: NormoCephalic and Moist mucous membranes
Respiratory: Clear
Cardiac: S1/S2 and Regular Rhythm
GI: Soft, Non Tender and Normal Bowel Sounds
Musculoskeletal: No Cyanosis and No Edema
Skin: Warm and Dry
Neuro: Awake, Alert, AO x 3, No Motor Deficits, Nonfocal/grossly intact, Cranial Nerves Intact and No Sensory Deficits
Psych: Calm and Intact Judgment/Insight
Laboratory Results
-
07/20/24 14:19
07/20/24 14:18
Laboratory Results
PT 17.7 Sec (11.4-14.6) H 07/20/24 14:18
INR 1.43 07/20/24 14:18
APTT 26.5 Sec (23.4-35.0) 07/20/24 14:18
Total Bilirubin 0.6 mg/dl (0.2-1.3) 07/20/24 14:18
AST 45 U/L (14-36) H 07/20/24 14:18
ALT 75 U/L (0-35) H 07/20/24 14:18
Alkaline Phosphatase 64 U/L (38-126) 07/20/24 14:18
Troponin I < 0.012 ng/ml 07/20/24 14:18
Impression/Plan
-
Assessment/Plan
Presentation with RLE Weakness and Speech/Language Disturbance -- Suspected Left MCA syndrome -- onset around 11 AM on 07/20/24
Diarrhea Just Prior to Her RLE Weakness Symptoms
-Symptoms now completely resolved based on exam and patient's report
-Continue Telemetry monitoring
-Allow permissive hypertension up to 220/120 mmHg blood pressure
-Hold Eliquis and start aspirin 81 mg once a day until brain MRI is completed
-Please follow-up CTA head and neck
-50-69% proximal bilateral internal carotid artery stenosis on CTA Head and Neck -- on the right side, it has progressed
-Appreciate neurology consultation
50-69% proximal bilateral internal carotid artery stenosis on CTA Head and Neck -- on the right side, it has progressed
-Vascular surgery consultation is appropriate in this case, and neurology agrees with vascular surgery consult
History of PE/DVT
-Hold home Xarelto for now while awaiting results of brain MRI -- discussed this with neurology
-Use Lovenox DVT prophylaxis for now
Hypertension
-Hold Propranolol for now
-Allow permissive hypertension up to 220/120 mmHg blood pressure
Hyperlipidemia
-Continue Lipitor
Diabetes Mellitus
-Hold Metformin for now
Anxiety
History of Depression?
-Continue Amitriptyline
Hiatal hernia
Hyperparathyroidism
GERD
-Continue Omeprazole
OA
Migraines
DVT Prophylaxis: Lovenox
Code Status: Full Code
[2024-07-20 20:45] LABS: Glucose - Point of Care 164 mg/dl (70-99)
[2024-07-20 21:52] VITALS: BP 119/77
--- NOTE | 2024-07-20 22:00 | PTCARENOTE ---
Pt. admitted from E.D., awake, alert, forgetful, NSR on monitor, call jimenez within reach, bed alarm intact.
[2024-07-20] MEDS: ELAVIL 10 MG PO (23:41)
[2024-07-20] MEDS: FEOSOL 325 MG PO (23:41)
[2024-07-20] MEDS: KLONOPIN 0.25 MG PO (23:41)
[2024-07-20] MEDS: LOVENOX 40 MG SC (23:44)
[2024-07-21] VITALS (7 sets, daily range): BP systolic 121–150; BP diastolic 65–101; PULSE 82; O2SAT 98
--- NOTE | 2024-07-21 06:51 | W.PN.VS ---
Today's Communication / Plan
-
cards eval
carotid duplex
Assessment/Plan
-
Left hemispheric TIA with right leg weakness and dysarthria
sx's improved
- MRI pending
- check carotid duplex
- card eval to assess risk for CEA
- tentative CEA next week pending above
Subjective Data
-
Date of Service: July 21, 2024
Patient presented with right leg weakness and difficulty speaking.
symptoms lasted for about 30 min
she reports she is returned to baseline today with no issues
no previous episodes
Objective Data
-
Vital Signs
Temp Pulse Resp BP Pulse Ox
97 F 82 14 124/66 97
07/21/24 05:31 07/21/24 05:31 07/21/24 05:31 07/21/24 05:31 07/21/24 05:31
Lab Results
07/20/24 14:19
07/20/24 14:18
Calcium 10.0 mg/dl (8.4-10.2) 07/20/24 14:18
Total Bilirubin 0.6 mg/dl (0.2-1.3) 07/20/24 14:18
AST 45 U/L (14-36) H 07/20/24 14:18
ALT 75 U/L (0-35) H 07/20/24 14:18
Alkaline Phosphatase 64 U/L (38-126) 07/20/24 14:18
Total Protein 7.7 g/dl (6.3-8.2) 07/20/24 14:18
Albumin 5.0 g/dl (3.5-5.0) 07/20/24 14:18
Physical Exam
-
rrr
ctab
nt,nd,soft
2+ radial bilat
2+ DP bilat
strength + bilat upper and lower
CTA - 50% stenosis of ICA bilat
calcified plaque at bifurcation
[2024-07-21 07:43] LABS: Glucose - Point of Care 140 mg/dl (70-99)
[2024-07-21 08:20] LABS: HDL Cholesterol 37 mg/dl; Total Cholesterol 225 mg/dl (50-199)
[2024-07-21 08:32] LABS: Triglyceride 450 mg/dl (10-149)
[2024-07-21 08:55] LABS: LDL Cholesterol, Direct 127 mg/dl
[2024-07-21] MEDS: VITAMIN D3 (cholecalciferol) 25 MCG PO (09:26)
[2024-07-21] MEDS: PROTONIX 40 MG PO (09:26)
[2024-07-21] MEDS: ROBINUL 1 MG PO (09:26)
[2024-07-21] MEDS: LEXAPRO 10 MG PO (09:26)
[2024-07-21] MEDS: VITAMIN C 500 MG PO (09:26)
[2024-07-21] MEDS: LOW STRENGTH ASPIRIN 81 MG PO (09:27)
[2024-07-21] MEDS: LIPITOR 40 MG PO (09:27)
[2024-07-21] MEDS: TYLENOL 650 MG PO (12:00)
[2024-07-21 12:05] LABS: Glucose - Point of Care 158 mg/dl (70-99)
--- NOTE | 2024-07-21 12:19 | CON.CAR ---
Consultation
Consultation Request
Date/Time Consultation Requested: 07/21/2024 at 1215
Date/Time Consultation Performed: 07/21/2024 at 1300
Requesting Provider: Dr. Chester Chester
Performing Provider: Chavo Rod MD
Reason for Consultation: Preoperative assessment for CEA
Medical History
-
Chief Complaint: Right leg heaviness with word finding difficulty and dysarthria
History of Present Illness:
78-year-old woman admitted with right leg weakness and transient aphasia, felt to have had left hemispheric TIA, now tentatively planned for CEA, evaluation in progress. Daughter is at bedside, currently she feels well, still with minor word
finding issues but improved, states left leg is back to normal. Daughters are in agreements. Last seen in our office in 2022. Since that time she has been stable. She has no cardiac complaints. She participates in [employer] without any
cardiovascular symptoms. Last echocardiogram stress test are listed below. She is chronically on propranolol 20 mg twice daily. Currently this is on hold, she is relatively normotensive but tachycardic. She lives independently, still drives a
car, though daughters want her to move to [place] to be close to them.
Past Medical History
Past Medical History: HTN, Hypercholesterolemia, NIDDM, Valvular Disease (Mild mitral regurgitation, mild to moderate aortic regurgitation 2022), Psychiatric (Anxiety, depression) and Other (History of deep venous thrombosis and pulmonary embolus,
elevated hemoglobin A1c, hyperparathyroidism, history of hepatitis B, migraines)
Past Surgical History: Cholecystectomy, Gynecological (ROSARIO/BSO) and Orthopedic (Right rotator cuff, left rotator cuff, left total knee arthroplasty, )
Social History
Tobacco: Non-Smoker
Alcohol: None
Drug: None
Personal: (Has significant other)
Living: Alone
Employment: Retired
Family History
Family History: Reviewed & Not Pertinent
Allergies / Home Medications
Allergy/AdvReac Type Severity Reaction Status Date / Time
erythromycin base Allergy 'Shakey' Verified 09/05/22 18:21
Penicillins Allergy Headache Verified 09/05/22 18:21
�Medication �Instructions �Recorded �Confirmed �Type
amitriptyline 10 mg tablet 10 mg PO HS 08/16/15 07/20/24 History
escitalopram oxalate 10 mg tablet 10 mg PO DAILY 08/16/15 07/20/24 History
clonazepam 0.5 mg tablet 0.25 mg PO HS 12/06/18 07/20/24 History
glucosamine sulf dipotassium Cl 1 ea PO HS 12/15/18 07/20/24 History
500 mg-chondroitin sulf 400 mg
tablet
ascorbic acid (vitamin C) 500 mg 500 mg PO DAILY 09/03/22 07/20/24 History
tablet (Vitamin C)
atorvastatin 40 mg tablet (Lipitor) 40 mg PO DAILY 09/03/22 07/20/24 History
cholecalciferol (vitamin D3) 25 25 mcg PO DAILY 09/03/22 07/20/24 History
mcg (1,000 unit) capsule (Vitamin
D3)
ferrous sulfate 325 mg (65 mg 325 mg PO HS 09/03/22 07/20/24 History
iron) tablet (Feosol)
glycopyrrolate 1 mg tablet 1 mg PO DAILY 09/03/22 07/20/24 History
omeprazole 20 mg capsule,delayed 20 mg PO DAILY 09/03/22 07/20/24 History
release
propranolol 20 mg tablet 20 mg PO BID 09/03/22 07/20/24 History
rivaroxaban 10 mg tablet (Xarelto) 10 mg PO DAILY 09/03/22 07/20/24 History
clonazepam 0.5 mg tablet 0.5 mg PO BIDPRN PRN anxiety 07/20/24 07/20/24 History
metformin 500 mg tablet 500 mg PO BID 07/20/24 07/20/24 History
Review of Systems
-
All other systems: Negative unless noted
Physical Exam
Vital Signs
Temp Pulse Resp BP Pulse Ox
36.8 C 79 18 121/65 97
05/10/25 07:28 07/21/24 07:28 07/21/24 07:28 07/21/24 07:28 07/21/24 07:28
Lab Results
07/20/24 14:19
07/20/24 14:18
Troponin I < 0.012 ng/ml 07/20/24 14:18
Physical Exam
General: No Apparent Distress
HEENT: Normocephalic
Respiratory: Clear
Cardiac: Regular Rhythm (With some extrasystoles) and Murmur (Systolic murmur base to apex 1-2/6)
Breast: Deferred by me
GI: Non Tender (Obese, no obvious hepatosplenomegaly)
Musculoskeletal: Edema (Mild, left greater than right, total knee arthroplasty scar)
Skin: Warm
Neuro: AO x 3 and Nonfocal/Grossly Intact (Mild dysarthria occasional word switching, motor and sensory appear intact)
Psych: Calm
Impression / Plan
-
Impression:
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
Mild to moderate aortic regurgitation
Mild mitral regurgitation
Hypercholesterolemia
Type 2 diabetes
Anxiety/depression
History of DVT and pulmonary embolus
Hyperparathyroidism
History of hepatitis B
Migraines
Plan:
From cardiac standpoint, she seems stable and if needed could proceed to carotid endarterectomy at acceptable perioperative cardiac risk.
Currently propranolol is on hold, and while normotensive she is relatively tachycardic with ectopy. Ideally, although beta-stephanie should not be started preoperatively, low-dose beta-stephanie therapy is in general continued if patient is already on
beta-stephanie. This is especially so since patient is apparently on glycopyrrolate at baseline. While we wish to avoid hypotension, will start reduced dose of metoprolol tartrate 12.5 mg twice daily for now and observe, titrating as needed.
She has a systolic murmur that is somewhat out of proportion to her prior echo. Will repeat echo but she can proceed to surgery regardless of echo findings, an echo can be done postoperatively.
Agree with high-dose statin therapy and aspirin.
Discussed with patient and daughters.
Data Reviewed
-
EKG: Tracing Personally Visualized and interpreted (Sinus rhythm, PAC, LVH by Jonh criteria)
CT Scan: Report Reviewed by me (Brain without obvious abnormality, 50-69% internal carotid stenoses bilaterally, less than 50% distal right common carotid)
Medical Tests (Nuc Med, Echo etc): Image Personally Visualized and interpreted (Echo 11/2024: Small LV, EF 60%, mild to moderate LVH, septal knuckle, mild MR, mild to moderate AI, normal pulmonary artery systolic pressure: Exercise MIBI March 2020:
Normal ST segment response at 5:30 Adam small mild fixed basal anteroseptal)
Labs: Labs Reviewed by me (Normal CBC, BUN/creatinine 19 and 0.7, potassium 4.9, AST 45, ALT 75, triglycerides 450, total cholesterol 225, direct LDL 127, HDL 37)
Old Records: Reviewed
--- NOTE | 2024-07-21 12:33 | PTOTSP ---
ST Acute Care Evaluations
Pt currently presented with clinical signs of a functional oropharyngeal swallow. No overt s/s of penetration or aspiration were noted at bedside. Please note that silent aspiration cannot be ruled out at bedside. No overt esophageal s/s noted or
reported at bedside. Pt has a hx of GERD. No skilled dysphagia services deemed warranted at this time.
Pt presents with clinical signs of at least moderate to possibly severe cognitive linguistic deficits as indicated by clinician observations and pt's performance on the MOCA (score=11/30). Pt exhibits relative strengths in the areas of orientation,
attention, and naming. Pt's areas of deficit include short term memory, executive functioning, visuospatial skills, and language/abstraction. Pt's deficits raise concern given that she comes from home alone, continues to drive, and manages all of
her medications (which she admits to have forgetting from time to time) and finances independently at this time.
Recommendations:
- Continue with regular solids, thin liquids, meds as tolerated with general aspiration and reflux precautions.
- Continue with tx of cognitive linguistic deficits while admitted.
- Consider family meeting to discuss the extent of the pt's cognitive linguistic deficits and their implications on how they may could impact her health and safety.
- Pt would benefit from continued ADOPTION SERVICES MANAGER services for cognitive linguistic tx upon discharge at the next level of care SNF, OP, or HH.
--- NOTE | 2024-07-21 12:36 | W.PN.NEURO.1 ---
Today's Communication / Plan
-
.
Subjective/Objective
Subjective Data
Date of Service: July 21, 2024
Neurology follow-up note.
Ms. Laboy states that her right leg weakness and difficulties expressing her thoughts have completely resolved within approximately 30 minutes.
The patient has been normotensive and afebrile.
CTA head/neck-50-69% bilateral ICA stenosis.
Brain MRI�no evidence of acute infarct
Hemoglobin A1c (05/25/2024)�7.6, LDL�127
PMH: PE/DVT, HTN, DLP, DM, MDD, KYUNG, Hiatal hernia, hyperparathyroidism, GERD, OA, migraines
PSH: L TKA, cholecystectomy, ROSARIO/BSO, R Rotator cuff repair, BL cataract surgery
SH:, lives at [place], retired, nonsmoker
All:PNC, Erythromycin
ROS: Positive for transient right leg weakness, aphasia, chronic distal discoloration, anxiety.
General: Well developed. In no acute distress.
Cardio: Regular rate and rhythm. Extremities are without cyanosis or edema.
Neuro:
Mental Status: Alert, oriented to person, place, and date. Normal attention and recall. Good fund of knowledge. Follows complex requests across the midline. Comprehension, naming, and repetition intact. Anxious mood
Cranial Nerves: Pupils are equally round, surgical. EOMs full. Visual wilkerson full to confrontation. No ptosis. No nystagmus. V1-V3 intact to light touch and pinprick bilaterally, symmetric. Face symmetric. Impaired hearing AU. The palate
elevated well. SCMs and traps 5/5. Tongue midline. No dysarthria.
Motor: Normal bulk and tone. No pronator or arm drift. Strength 5/5 throughout. No clonus.
Reflexes: 2+ throughout the upper extremities and knees. . Plantar responses flexor bilaterally.
Sensory: Reduced vibration at the toes
Coordination: No dysmetria or tremor.
Gait: deferred
Assessment and Plan:
I. TIA
II. Bilateral ICA stenosis
III. KYUNG
- Continue Telemetry monitoring
- Continuing Xarelto
- Lipitor 80 mg nightly
- Please follow-up carotid Doppler US
- TTE
- Vascular surgery follow-up
- DVT prophylaxis.
I personally reviewed all radiology and labs along with past medical records pertinent to current medical problems. Total time spent in patient care is 55 minutes.
Thank you for allowing us to participate in the care of this patient. We will continue to follow. Please do not hesitate to contact us with any questions or concerns.
Objective Data
Vital Signs
Temp Pulse Resp BP Pulse Ox
36.8 C 79 18 121/65 97
07/21/24 07:28 07/21/24 07:28 07/21/24 07:28 07/21/24 07:28 07/21/24 07:28
Lab Results
07/20/24 14:19
07/20/24 14:18
PT 17.7 Sec (11.4-14.6) H 07/20/24 14:18
INR 1.43 07/20/24 14:18
APTT 26.5 Sec (23.4-35.0) 07/20/24 14:18
Sodium 142 mmol/L (135-145) 07/20/24 14:18
Potassium 4.9 mmol/L (3.5-5.1) 07/20/24 14:18
BUN 19 mg/dl (7-17) H 07/20/24 14:18
Glucose 151 mg/dl (70-99) H 07/20/24 14:18
Calcium 10.0 mg/dl (8.4-10.2) 07/20/24 14:18
LDL Cholesterol Direct 127 mg/dl 07/21/24 07:07
LDL Cholesterol, Calc mg/dl 07/21/24 07:07
Patient Allergies
erythromycin base Allergy (Verified 09/05/22 18:21)
'Shakey'
Penicillins Allergy (Verified 09/05/22 18:21)
Headache
Vital Signs and Labs
-
Vital Signs and Labs:
Vital Signs
Temp Pulse Resp BP Pulse Ox
36.8 C 79 18 121/65 97
07/21/24 07:28 07/21/24 07:28 07/21/24 07:28 07/21/24 07:28 07/21/24 07:28
Lab Results
07/20/24 14:19
07/20/24 14:18
PT 17.7 Sec (11.4-14.6) H 07/20/24 14:18
INR 1.43 07/20/24 14:18
APTT 26.5 Sec (23.4-35.0) 07/20/24 14:18
Sodium 142 mmol/L (135-145) 07/20/24 14:18
Potassium 4.9 mmol/L (3.5-5.1) 07/20/24 14:18
BUN 19 mg/dl (7-17) H 07/20/24 14:18
Glucose 151 mg/dl (70-99) H 07/20/24 14:18
Calcium 10.0 mg/dl (8.4-10.2) 07/20/24 14:18
LDL Cholesterol Direct 127 mg/dl 07/21/24 07:07
LDL Cholesterol, Calc mg/dl 07/21/24 07:07
Medications
-
Medications:
Generic Name Dose Route Start Last Admin
Trade Name Freq PRN Reason Stop Dose Admin
Acetaminophen 650 mg 07/20/24 18:39
Acetaminophen 650 Mg Rectal Suppository RECTAL 08/17/24 18:38
Q4HPRN PRN
SOLIS, mild pain, or temp >100.4F
Acetaminophen 650 mg 07/20/24 18:39 07/21/24 12:00
Acetaminophen 325 Mg Tablet PO 08/17/24 18:38 650 mg
Q4HPRN PRN Administration
SOLIS, mild pain, or temp >100.4F
Amitriptyline HCl 10 mg 07/20/24 22:00 07/20/24 23:41
Amitriptyline 10 Mg Tablet PO 08/17/24 21:59 10 mg
HS FAMILIA Administration
Ascorbic Acid 500 mg 07/21/24 08:00 07/21/24 09:26
Ascorbic Acid 500 Mg Tablet PO 08/18/24 07:59 500 mg
DAILY FAMILIA Administration
Aspirin 81 mg 07/21/24 08:00 07/21/24 09:27
Aspirin 81 Mg Chewable Tablet PO 08/18/24 07:59 81 mg
DAILY AFMILIA Administration
Atorvastatin Calcium 40 mg 07/21/24 08:00 07/21/24 09:27
Atorvastatin (Lipitor) 40 Mg Tablet PO 08/18/24 07:59 40 mg
DAILY FAMILIA Administration
Cholecalciferol 25 mcg 07/21/24 08:00 07/21/24 09:26
Cholecalciferol (Vitamin D3) 25 Mcg Tablet (1,000 Units) PO 08/18/24 07:59 25 mcg
DAILY FAMILIA Administration
Clonazepam 0.5 mg 07/20/24 21:36
Clonazepam 0.5 Mg Tablet PO 08/17/24 21:35
BIDPRN PRN
anxiety
Clonazepam 0.25 mg 07/20/24 22:00 07/20/24 23:41
Clonazepam 0.25 Mg Dose PO 08/17/24 21:59 0.25 mg
HS FAMILIA Administration
Enoxaparin Sodium 40 mg 07/20/24 19:00 07/20/24 23:44
Enoxaparin Sodium 40 Mg/0.4 Ml Syringe SC 08/17/24 18:59 40 mg
QPM FAMILIA Administration
Escitalopram Oxalate 10 mg 07/21/24 08:00 07/21/24 09:26
Escitalopram 10 Mg Tablet PO 08/18/24 07:59 10 mg
DAILY FAMILIA Administration
Ferrous Sulfate 325 mg 07/20/24 22:00 07/20/24 23:41
Ferrous Sulfate 325 Mg Tablet PO 08/17/24 21:59 325 mg
HS FAMILIA Administration
Glycopyrrolate 1 mg 07/21/24 08:00 07/21/24 09:26
Glycopyrrolate 1 Mg Tablet PO 08/18/24 07:59 1 mg
DAILY FAMILIA Administration
Pantoprazole Sodium 40 mg 07/21/24 08:00 07/21/24 09:26
Pantoprazole 40 Mg Delayed Release Tablet PO 08/18/24 07:59 40 mg
DAILY FAMILIA Administration
Sodium Chloride 0 flush 07/20/24 22:00
Sodium Chloride 0.9% (Flush) Syringe IV 08/17/24 21:59
PER PROTOCOL FAMILIA
Home Medications
-
Home Medications
amitriptyline 10 mg tablet 10 mg PO HS 08/16/15
escitalopram oxalate 10 mg tablet 10 mg PO DAILY 08/16/15
clonazepam 0.5 mg tablet 0.25 mg PO HS 12/06/18
glucosamine sulf dipotassium Cl 500 mg-chondroitin sulf 400 mg tablet 1 ea PO HS 12/15/18
ascorbic acid (vitamin C) 500 mg tablet (Vitamin C) 500 mg PO DAILY 09/03/22
atorvastatin 40 mg tablet (Lipitor) 40 mg PO DAILY 09/03/22
cholecalciferol (vitamin D3) 25 mcg (1,000 unit) capsule (Vitamin D3) 25 mcg PO DAILY 09/03/22
ferrous sulfate 325 mg (65 mg iron) tablet (Feosol) 325 mg PO HS 09/03/22
glycopyrrolate 1 mg tablet 1 mg PO DAILY 09/03/22
omeprazole 20 mg capsule,delayed release 20 mg PO DAILY 09/03/22
propranolol 20 mg tablet 20 mg PO BID 09/03/22
rivaroxaban 10 mg tablet (Xarelto) 10 mg PO DAILY 09/03/22
clonazepam 0.5 mg tablet 0.5 mg PO BIDPRN PRN anxiety 07/20/24
metformin 500 mg tablet 500 mg PO BID 07/20/24
--- NOTE | 2024-07-21 13:55 | CM ---
CM reviewed chart, patient seen bedside with daughters, patient somewhat forgetful, initial assessment completed with assistance from daughters. Patient resides independently in a first floor apartment, no steps to enter. Patient denies use of DME,
denies VN, reports current with outpatient PT, reports [facility] in past after knee surgery (12 years ago). CM discussed PT recommendations of VN, patient agreeable to referral to VN. Patient confirms PCP [facility], [facility]
[place], confirms prescription coverage. ZENG form reviewed, provided with copy, placed in chart. CM will continue to follow for all discharge planning needs.
Plan; home with VN
[2024-07-21 16:13] LABS: Glucose - Point of Care 159 mg/dl (70-99)
--- NOTE | 2024-07-21 17:15 | W.PN.HOSP.TC ---
Today's Communication/Plan
-
CEA surgery anticipated early next week
Continue Aspirin 81 mg daily and Lovenox subq 40 mg/day
HOLD Xarelto (patient takes prophylactic Xarelto at home to prevent further DVT/PE) in anticipation of surgery next week
Assessment / Plan
Assessment / Plan
Physical Exam
General: No Apparent Distress and Comfortable
HEENT: NormoCephalic and Moist mucous membranes
Respiratory: Clear
Cardiac: S1/S2 and Regular Rhythm
GI: Soft, Non Tender and Normal Bowel Sounds
Musculoskeletal: No Cyanosis and No Edema
Skin: Warm and Dry
Neuro: Awake, Alert, AO x 3, No Motor Deficits, Nonfocal/grossly intact, Cranial Nerves Intact and No Sensory Deficits
Psych: Calm and Intact Judgment/Insight
Assessment/Plan
Presentation with RLE Weakness and Speech/Language Disturbance -- Suspected Left MCA syndrome -- onset around 11 AM on 07/20/24
Left hemispheric TIA with right leg weakness and dysarthria
Diarrhea Just Prior to Her RLE Weakness Symptoms
-Symptoms now completely resolved based on exam and patient's report
-Continue Telemetry monitoring
-Allow permissive hypertension up to 220/120 mmHg blood pressure
-Hold home prophylactic (prophylaxis against re-occurrence of her previous DVT/PE Xarelto 10 mg daily which she takes at home)
-Continue high intensity statin
-50-69% proximal bilateral internal carotid artery stenosis on CTA Head and Neck -- on the right side, it has progressed
-Will check carotid ultrasound (cannot be done until 07/23/24 per radiology)
-Tentative CEA surgery next week as per vascular surgery depending on the above
-Appreciate neurology consultation
50-69% proximal bilateral internal carotid artery stenosis on CTA Head and Neck -- on the right side, it has progressed
-Vascular surgery consultation is appropriate in this case, and neurology agrees with vascular surgery consult
-Will check carotid ultrasound (cannot be done until 07/23/24 per radiology)
-Tentative CEA surgery next week as per vascular surgery depending on the above
-Cardio consulted for pre-op clearance (vascular surgery requested production bow maker consult for possible CEA surgery next week)
Systolic Murmur
-Plan to repeat echo as per cardiology
History of PE/DVT
-Continue to hold Xarelto (for upcoming CEA) per my communication with production bow maker, PE/DVT was long time ago, patient is taking a PROPHYLACTIC dose of Xarelto 10 mg daily currently
-Continue Lovenox 40 mg/day
Spinal cord compression and central canal stenosis
-Seen on Brain MRI
-Asymptomatic
Partially empty sella
-Seen on Brain MRI
Hypertension
-Hold Propranolol for now
-Replace with Metoprolol (as per cardio) for now since patient relatively tachycardic and is on glycopyrrolate which can have anticholinergic effects
-Allow permissive hypertension up to 220/120 mmHg blood pressure
Hyperlipidemia
-Continue Lipitor
Diabetes Mellitus
-Hold Metformin for now
Anxiety
History of Depression?
-Continue Amitriptyline
Hiatal hernia
Hyperparathyroidism
GERD
-Continue Omeprazole
OA
Migraines
DVT Prophylaxis: Lovenox
Code Status: Full Code
Anticipated Discharge: > 48 hours
Subjective/Interval History
-
Date of Service: July 21, 2024
Patient was seen and examined. She denied any symptoms or complaints, has not had any speech/language issues or any leg weakness.
Objective Data
-
Vital Signs:
Vital Signs
Temp Pulse Resp BP Pulse Ox
98.8 F 91 18 134/83 99
07/21/24 15:18 07/21/24 15:18 07/21/24 15:18 07/21/24 15:18 07/21/24 15:18
[2024-07-21] MEDS: LOPRESSOR 12.5 MG PO ×2 (17:45→23:17)
[2024-07-21] MEDS: LOVENOX 40 MG SC (17:46)
[2024-07-21 21:19] LABS: Glucose - Point of Care 172 mg/dl (70-99)
[2024-07-21] MEDS: FEOSOL 325 MG PO (21:39)
[2024-07-21] MEDS: KLONOPIN 0.25 MG PO (21:39)
[2024-07-21] MEDS: ELAVIL 10 MG PO (21:39)
[2024-07-22 03:51] VITALS: BP 165/83
--- NOTE | 2024-07-22 06:04 | W.PN.VS ---
Today's Communication / Plan
-
NPO post midnight for possible CEA kenny
still needs carotid duplex
Assessment/Plan
-
Left hemispheric TIA with right leg weakness and dysarthria
sx's improved
- MRI negative
- check carotid duplex
- card eval tok for CEA
- tentative CEA next week pending above
Subjective Data
-
Date of Service: July 22, 2024
left hemispheric tia
Objective Data
-
Vital Signs
Temp Pulse Resp BP Pulse Ox
98.1 F 80 12 165/83 97
07/22/24 03:51 07/22/24 03:51 07/22/24 03:51 07/22/24 03:51 07/22/24 03:51
Intake and Output
07/20/24 07/21/24 07/22/24
06:59 06:59 06:59
Intake Total 1440 / 1440
Balance 1440 / 1440
Intake:
Oral fluids 1440 / 1440
Other:
Number of approximated MODERATE 2
amounts of urine
Lab Results
07/20/24 14:19
07/20/24 14:18
Calcium 10.0 mg/dl (8.4-10.2) 07/20/24 14:18
Total Bilirubin 0.6 mg/dl (0.2-1.3) 07/20/24 14:18
AST 45 U/L (14-36) H 07/20/24 14:18
ALT 75 U/L (0-35) H 07/20/24 14:18
Alkaline Phosphatase 64 U/L (38-126) 07/20/24 14:18
Total Protein 7.7 g/dl (6.3-8.2) 07/20/24 14:18
Albumin 5.0 g/dl (3.5-5.0) 07/20/24 14:18
[2024-07-22 07:33] VITALS: BP 156/83
--- NOTE | 2024-07-22 07:40 | W.PN.NEURO.1 ---
Today's Communication / Plan
-
.
Subjective/Objective
Subjective Data
Date of Service: July 22, 2024
Neurology follow-up note.
Ms. Laboy reports no recurrent motor language abnormalities.
Carotid Doppler US, TTE are pending
The patient has been normotensive and afebrile.
CTA head/neck-50-69% bilateral ICA stenosis.
Brain MRI�no evidence of acute infarct
Hemoglobin A1c (05/25/2024)�7.6, LDL�127
PMH: PE/DVT, HTN, DLP, DM, MDD, KYUNG, Hiatal hernia, hyperparathyroidism, GERD, OA, migraines
PSH: L TKA, cholecystectomy, ROSARIO/BSO, R Rotator cuff repair, BL cataract surgery
SH:, lives at [place], retired, nonsmoker
All:PNC, Erythromycin
ROS: Positive for transient right leg weakness, aphasia, chronic distal discoloration, anxiety.
General: Well developed. In no acute distress.
Cardio: Regular rate and rhythm. Extremities are without cyanosis or edema.
Neuro:
Mental Status: Alert, oriented to person, place, and date. Normal attention and recall. Good fund of knowledge. Follows complex requests across the midline. Comprehension, naming, and repetition intact. Anxious mood
Cranial Nerves: Pupils are equally round, surgical. EOMs full. Visual wilkerson full to confrontation. No ptosis. No nystagmus. V1-V3 intact to light touch and pinprick bilaterally, symmetric. Face symmetric. Impaired hearing AU. The palate
elevated well. SCMs and traps 5/5. Tongue midline. No dysarthria.
Motor: Normal bulk and tone. No pronator or arm drift. Strength 5/5 throughout. No clonus.
Reflexes: 2+ throughout the upper extremities and knees. . Plantar responses flexor bilaterally.
Sensory: Reduced vibration at the toes
Coordination: No dysmetria or tremor.
Gait: deferred
Assessment and Plan:
I. TIA
II. Bilateral ICA stenosis
III. KYUNG
- Continue Telemetry monitoring
- Continuing ASA 81mg QD. CEA is anticipated early next week
- Lipitor 80 mg nightly
- Please follow-up carotid Doppler US, TTE
- Vascular surgery follow-up
- DVT prophylaxis.
- Please recall neurology services any questions or concerns
I personally reviewed all radiology and labs along with past medical records pertinent to current medical problems. Total time spent in patient care is 35 minutes.
Thank you for allowing us to participate in the care of this patient.Please do not hesitate to contact us with any questions or concerns
Objective Data
Vital Signs
Temp Pulse Resp BP Pulse Ox
37.1 C 77 20 156/83 96
07/22/24 07:33 07/22/24 07:33 07/22/24 07:33 07/22/24 07:33 07/22/24 07:33
Lab Results
07/20/24 14:19
07/20/24 14:18
PT 17.7 Sec (11.4-14.6) H 07/20/24 14:18
INR 1.43 07/20/24 14:18
APTT 26.5 Sec (23.4-35.0) 07/20/24 14:18
Sodium 142 mmol/L (135-145) 07/20/24 14:18
Potassium 4.9 mmol/L (3.5-5.1) 07/20/24 14:18
BUN 19 mg/dl (7-17) H 07/20/24 14:18
Glucose 151 mg/dl (70-99) H 07/20/24 14:18
Calcium 10.0 mg/dl (8.4-10.2) 07/20/24 14:18
LDL Cholesterol Direct 127 mg/dl 07/21/24 07:07
LDL Cholesterol, Calc mg/dl 07/21/24 07:07
Patient Allergies
erythromycin base Allergy (Verified 09/05/22 18:21)
'Shakey'
Penicillins Allergy (Verified 09/05/22 18:21)
Headache
Vital Signs and Labs
-
Vital Signs and Labs:
Vital Signs
Temp Pulse Resp BP Pulse Ox
37.1 C 87 20 120/84 100
07/22/24 10:58 07/22/24 10:58 07/22/24 10:58 07/22/24 10:58 07/22/24 10:58
Lab Results
07/20/24 14:19
07/20/24 14:18
PT 17.7 Sec (11.4-14.6) H 07/20/24 14:18
INR 1.43 07/20/24 14:18
APTT 26.5 Sec (23.4-35.0) 07/20/24 14:18
Sodium 142 mmol/L (135-145) 07/20/24 14:18
Potassium 4.9 mmol/L (3.5-5.1) 07/20/24 14:18
BUN 19 mg/dl (7-17) H 07/20/24 14:18
Glucose 151 mg/dl (70-99) H 07/20/24 14:18
Calcium 10.0 mg/dl (8.4-10.2) 07/20/24 14:18
LDL Cholesterol Direct 127 mg/dl 07/21/24 07:07
LDL Cholesterol, Calc mg/dl 07/21/24 07:07
Medications
-
Medications:
Generic Name Dose Route Start Last Admin
Trade Name Freq PRN Reason Stop Dose Admin
Acetaminophen 650 mg 07/20/24 18:39
Acetaminophen 650 Mg Rectal Suppository RECTAL 08/17/24 18:38
Q4HPRN PRN
SOLIS, mild pain, or temp >100.4F
Acetaminophen 650 mg 07/20/24 18:39 07/21/24 12:00
Acetaminophen 325 Mg Tablet PO 08/17/24 18:38 650 mg
Q4HPRN PRN Administration
SOLIS, mild pain, or temp >100.4F
Amitriptyline HCl 10 mg 07/20/24 22:00 07/21/24 21:39
Amitriptyline 10 Mg Tablet PO 08/17/24 21:59 10 mg
HS FAMILIA Administration
Ascorbic Acid 500 mg 07/21/24 08:00 07/22/24 09:17
Ascorbic Acid 500 Mg Tablet PO 08/18/24 07:59 500 mg
DAILY FAMILIA Administration
Aspirin 81 mg 07/21/24 08:00 07/22/24 09:17
Aspirin 81 Mg Chewable Tablet PO 08/18/24 07:59 81 mg
DAILY FAMILIA Administration
Atorvastatin Calcium 80 mg 07/22/24 08:00 07/22/24 09:18
Atorvastatin (Lipitor) 80 Mg Tablet PO 08/19/24 07:59 80 mg
DAILY FAMILIA Administration
Cholecalciferol 25 mcg 07/21/24 08:00 07/22/24 09:17
Cholecalciferol (Vitamin D3) 25 Mcg Tablet (1,000 Units) PO 08/18/24 07:59 25 mcg
DAILY FAMILIA Administration
Clonazepam 0.5 mg 07/20/24 21:36
Clonazepam 0.5 Mg Tablet PO 08/17/24 21:35
BIDPRN PRN
anxiety
Clonazepam 0.25 mg 07/20/24 22:00 07/21/24 21:39
Clonazepam 0.25 Mg Dose PO 08/17/24 21:59 0.25 mg
HS FAMILIA Administration
Enoxaparin Sodium 40 mg 07/21/24 18:00 07/21/24 17:46
Enoxaparin Sodium 40 Mg/0.4 Ml Syringe SC 08/18/24 17:59 40 mg
QPM FAMILIA Administration
Escitalopram Oxalate 10 mg 07/21/24 08:00 07/22/24 09:17
Escitalopram 10 Mg Tablet PO 08/18/24 07:59 10 mg
DAILY FAMILIA Administration
Ferrous Sulfate 325 mg 07/20/24 22:00 07/21/24 21:39
Ferrous Sulfate 325 Mg Tablet PO 08/17/24 21:59 325 mg
HS FAMILIA Administration
Glycopyrrolate 1 mg 07/21/24 08:00 07/22/24 09:17
Glycopyrrolate 1 Mg Tablet PO 08/18/24 07:59 1 mg
DAILY FAMILIA Administration
Metoprolol Tartrate 12.5 mg 07/21/24 20:00 07/22/24 09:15
Metoprolol 12.5 Mg Regular Release Dose (1/2 Of 25 Mg Tablet) PO 08/18/24 19:59 12.5 mg
BID FAMILIA Administration
Pantoprazole Sodium 40 mg 07/21/24 08:00 07/22/24 09:15
Pantoprazole 40 Mg Delayed Release Tablet PO 08/18/24 07:59 40 mg
DAILY FAMILIA Administration
Sodium Chloride 0 flush 07/20/24 22:00
Sodium Chloride 0.9% (Flush) Syringe IV 08/17/24 21:59
PER PROTOCOL FAMILIA
Home Medications
-
Home Medications
amitriptyline 10 mg tablet 10 mg PO HS 08/16/15
escitalopram oxalate 10 mg tablet 10 mg PO DAILY 08/16/15
clonazepam 0.5 mg tablet 0.25 mg PO HS 12/06/18
glucosamine sulf dipotassium Cl 500 mg-chondroitin sulf 400 mg tablet 1 ea PO HS 12/15/18
ascorbic acid (vitamin C) 500 mg tablet (Vitamin C) 500 mg PO DAILY 09/03/22
atorvastatin 40 mg tablet (Lipitor) 40 mg PO DAILY 09/03/22
cholecalciferol (vitamin D3) 25 mcg (1,000 unit) capsule (Vitamin D3) 25 mcg PO DAILY 09/03/22
ferrous sulfate 325 mg (65 mg iron) tablet (Feosol) 325 mg PO HS 09/03/22
glycopyrrolate 1 mg tablet 1 mg PO DAILY 09/03/22
omeprazole 20 mg capsule,delayed release 20 mg PO DAILY 09/03/22
propranolol 20 mg tablet 20 mg PO BID 09/03/22
rivaroxaban 10 mg tablet (Xarelto) 10 mg PO DAILY 09/03/22
clonazepam 0.5 mg tablet 0.5 mg PO BIDPRN PRN anxiety 07/20/24
metformin 500 mg tablet 500 mg PO BID 07/20/24
[2024-07-22 07:52] LABS: Glucose - Point of Care 137 mg/dl (70-99)
[2024-07-22] MEDS: PROTONIX 40 MG PO (09:15)
[2024-07-22] MEDS: LOPRESSOR 12.5 MG PO ×2 (09:15→20:29)
[2024-07-22] MEDS: LOW STRENGTH ASPIRIN 81 MG PO (09:17)
[2024-07-22] MEDS: LEXAPRO 10 MG PO (09:17)
[2024-07-22] MEDS: VITAMIN C 500 MG PO (09:17)
[2024-07-22] MEDS: VITAMIN D3 (cholecalciferol) 25 MCG PO (09:17)
[2024-07-22] MEDS: ROBINUL 1 MG PO (09:17)
[2024-07-22] MEDS: LIPITOR 80 MG PO (09:18)
[2024-07-22 10:58] VITALS: BP 120/84
[2024-07-22 11:46] LABS: Glucose - Point of Care 247 mg/dl (70-99)
--- NOTE | 2024-07-22 14:05 | W.PN.HOSP.TC ---
Today's Communication/Plan
-
See plan
Assessment / Plan
Assessment / Plan
Physical Exam
General: No Apparent Distress and Comfortable
HEENT: NormoCephalic and Moist mucous membranes
Respiratory: Clear
Cardiac: S1/S2 and Regular Rhythm
GI: Soft, Non Tender and Normal Bowel Sounds
Musculoskeletal: No Cyanosis and No Edema
Skin: Warm and Dry
Neuro: Awake, Alert, AO x 3, No Motor Deficits, Nonfocal/grossly intact, Cranial Nerves Intact and No Sensory Deficits
Psych: Calm and Intact Judgment/Insight
Assessment/Plan
Presentation with RLE Weakness and Speech/Language Disturbance -- Suspected Left MCA syndrome -- onset around 11 AM on 07/20/24
Left hemispheric TIA with right leg weakness and dysarthria
Diarrhea Just Prior to Her RLE Weakness Symptoms
-Symptoms now completely resolved based on exam and patient's report
-Continue Telemetry monitoring
-Hold home prophylactic dose Xarelto (prophylaxis against re-occurrence of her previous DVT/PE Xarelto 10 mg daily which she takes at home)
-Continue high intensity statin
-50-69% proximal bilateral internal carotid artery stenosis on CTA Head and Neck -- on the right side, it has progressed
-Will check carotid ultrasound (cannot be done until 07/23/24 per radiology)
-Echo
-NPO post midnight for possible CEA tomorrow
-Appreciate neurology consultation
50-69% proximal bilateral internal carotid artery stenosis on CTA Head and Neck -- on the right side, it has progressed
-Vascular surgery consultation is appropriate in this case, and neurology agrees with vascular surgery consult
-Will check carotid ultrasound (cannot be done until 07/23/24 per radiology)
-NPO post midnight for possible CEA tomorrow
-Cardio consulted for pre-op clearance (vascular surgery requested respiratory therapy director consult for possible CEA surgery next week)
Systolic Murmur
-Plan to repeat echo as per cardiology
History of PE/DVT
-Continue to hold Xarelto (for upcoming CEA) per my communication with respiratory therapy director, PE/DVT was long time ago, patient is taking a PROPHYLACTIC dose of Xarelto 10 mg daily currently outpatient
-Continue Lovenox 40 mg/day for now prior to surgery, can consider to switch back to Xarelto after surgery
Spinal cord compression and central canal stenosis
-Seen on Brain MRI
-Asymptomatic
Partially empty sella
-Seen on Brain MRI
Hypertension
-Hold Propranolol for now
-Replaced with Metoprolol (as per cardio) for now since patient relatively tachycardic and is on glycopyrrolate which can have anticholinergic effects
Hyperlipidemia
-Continue Lipitor
Diabetes Mellitus
-Hold Metformin for now
-Insulin Sliding Scale with meals
-Continue accuchecks
Anxiety
History of Depression?
-Continue Amitriptyline
Hiatal hernia
Hyperparathyroidism
GERD
-Continue Omeprazole
OA
Migraines
Speech Therapy 07/22/24 from Fátima Grewal: 'I just wanted to let you know I did a MOCA on her yesterday and she got an 02/10. I saw her MRI was negative. I def have concerns about her going home alone, from a cognitive standpoint.'
DVT Prophylaxis: Lovenox
Code Status: Full Code
Anticipated Discharge: 24 - 48 hours
Subjective/Interval History
-
Date of Service: July 22, 2024
Objective Data
-
Vital Signs:
Vital Signs
Temp Pulse Resp BP Pulse Ox
98.8 F 87 20 120/84 100
07/22/24 10:58 07/22/24 10:58 07/22/24 10:58 07/22/24 10:58 07/22/24 10:58
I&O
07/21/24 07/22/24 07/23/24
06:59 06:59 06:59
Intake Total 1440 / 1440
Balance 1440 / 1440
--- NOTE | 2024-07-22 14:51 | W.PN.CARDCBS ---
Today's Communication / Plan
-
Stable cardiac status
Okay to proceed with carotid endarterectomy from cardiac standpoint.
Impression / Plan
-
Impression:
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
Mild to moderate aortic regurgitation
Mild mitral regurgitation
Hypercholesterolemia
Type 2 diabetes
Anxiety/depression
History of DVT and pulmonary embolus
Hyperparathyroidism
History of hepatitis B
Migraines
Plan:
She is stable from a cardiac standpoint. Currently no neurologic symptoms, has recovered from her left hemispheric event, and she has no complaints
Blood pressure and heart rate are reasonably controlled. She is on low-dose metoprolol.
No evidence of volume overload, chest discomfort, cardiac symptoms.
Okay to proceed to OR for carotid endarterectomy from cardiac standpoint.
Postop, resume DVT prophylaxis dose of Xarelto, 10 mg daily, continue aspirin, would probably continue metoprolol long-term in place of propranolol. Continue high-dose statin.
Progress Note - Floral Assistant
Subjective
Date of Service: July 22, 2024:
Current medications: Aspirin 81 mg a day, amitriptyline 10 mg at bedtime, Klonopin 0.25 mg at bedtime, Lexapro 10 mg daily, iron sulfate, glycopyrrolate, pantoprazole 40 mg a day, atorvastatin 80 mg a day, metoprolol tartrate 12.5 mg twice daily,
subcu Lovenox, as outpatient had been on DVT suppression dose of Xarelto
BP 120/84, respirations 20, pulse 87, sats 100%, head neck exam unremarkable lungs are clear, systolic murmur mostly at apex, JVD okay no edema, neuro nonfocal
No labs today
Brain MRI July 21: No acute findings
Objective
Labs:
07/20/24 14:19
07/20/24 14:18
Labs
Hgb 14.1 g/dL (12.0-16.0) 07/20/24 14:19
Hct 41.5 % (37.0-47.0) 07/20/24 14:19
Plt Count 275 10^3/uL (130-400) 07/20/24 14:19
PT 17.7 Sec (11.4-14.6) H 07/20/24 14:18
INR 1.43 07/20/24 14:18
APTT 26.5 Sec (23.4-35.0) 07/20/24 14:18
Sodium 142 mmol/L (135-145) 07/20/24 14:18
Potassium 4.9 mmol/L (3.5-5.1) 07/20/24 14:18
BUN 19 mg/dl (7-17) H 07/20/24 14:18
Creatinine 0.7 mg/dL (0.6-1.0) 07/20/24 14:18
Glucose 151 mg/dl (70-99) H 07/20/24 14:18
Troponins
07/20/24
14:18
Troponin I < 0.012
Vital Signs and I&O:
Vital Signs
Temp Pulse Resp BP Pulse Ox
37.1 C 87 20 120/84 100
07/22/24 10:58 07/22/24 10:58 07/22/24 10:58 07/22/24 10:58 07/22/24 10:58
Vital Signs
Temp Pulse Resp BP Pulse Ox
37.1 C 87 20 120/84 100
07/22/24 10:58 07/22/24 10:58 07/22/24 10:58 07/22/24 10:58 07/22/24 10:58
Intake & Output
07/20/24 07/21/24 07/22/24 07/23/24
07:59 07:59 07:59 07:59
Intake Total 1440 / 1440
Balance 1440 / 1440
Physical Exam
Physical Exam
See above
[2024-07-22 15:09] VITALS: BP 119/50
[2024-07-22 15:55] LABS: Glucose - Point of Care 205 mg/dl (70-99)
[2024-07-22] MEDS: NOVOLOG FLEXPEN-LOW RESISTANCE 2 UNITS SC (18:14)
[2024-07-22] MEDS: LOVENOX 40 MG SC (18:14)
[2024-07-22 19:40] VITALS: BP 146/77
[2024-07-22] MEDS: MIRALAX 17 GRAMS PO (20:29)
[2024-07-22] MEDS: KLONOPIN 0.25 MG PO (21:29)
[2024-07-22] MEDS: ELAVIL 10 MG PO (21:29)
[2024-07-22] MEDS: FEOSOL 325 MG PO (21:29)
[2024-07-22 21:49] LABS: Glucose - Point of Care 147 mg/dl (70-99)
[2024-07-22 23:11] VITALS: BP 142/82
[2024-07-23] VITALS (7 sets, daily range): BP systolic 124–166; BP diastolic 60–84; PULSE 80; O2SAT 97
[2024-07-23 06:16] LABS: Glucose - Point of Care 132 mg/dl (70-99)
[2024-07-23 07:39] LABS: % Basophils 1.1 % (0-2); % Eosinophils 5.1 % (0-6); % Immature Granulocytes 0.8 % (0-0.5); % Lymphocytes 48.1 % (20.5-51.1); % Monocytes 8.8 % (1.7-9.3); % Neutrophils 36.1 % (42.2-75.2); Absolute Basophils 0.1 10^3/uL (0-0.2); Absolute Eosinophils 0.4 10^3/uL (0-0.7); Absolute Immature Granulocytes 0.1 10^3/uL (0-0.05); Absolute Lymphocytes 3.6 10^3/uL (1.2-3.4); Absolute Monocytes 0.7 10^3/uL (0.1-0.6); Absolute Neutrophils 2.7 10^3/uL (1.4-6.5); Hematocrit 37.8 % (37.0-47.0); Hemoglobin 12.7 g/dL (12.0-16.0); Mean Corp Hgb Conc. 33.6 g/dL (33.0-37.0); Mean Corpuscular Hgb 28.6 pg (27.0-31.0); Mean Corpuscular Volume 85.1 fL (81.0-99.0); Mean Platelet Volume 10.9 fL (7.4-10.4); Nucleated Red Blood Cells % 0 %; Platelet Count 232 10^3/uL (130-400); Red Blood Cell Count 4.44 10^6/uL (4.20-5.40); Red Cell Dist. Width 15.7 % (11.5-14.5); White Blood Cell Count 7.5 10^3/uL (4.8-10.8)
[2024-07-23 08:20] LABS: ALT (SGPT) 69 U/L (0-35); AST (SGOT) 41 U/L (14-36); Alkaline Phosphatase 58 U/L (38-126); Blood Urea Nitrogen 17 mg/dl (7-17); Calcium 9.7 mg/dl (8.4-10.2); Carbon Dioxide 26 mmol/L (22-30); Chloride 104 mmol/L (98-107); Estimated Creatinine Clearance 73 ml/min; Glucose 124 mg/dl (70-99); Potassium 4.4 mmol/L (3.5-5.1); Sodium 139 mmol/L (135-145); Total Bilirubin 0.5 mg/dl (0.2-1.3); Total Protein 6.6 g/dl (6.3-8.2); eGFR > 60.00
--- NOTE | 2024-07-23 09:08 | CON.VAS ---
Consultation
Consultation Request
Date/Time Consultation Performed: 07/21/24 6:51
Performing Provider: Romeo
Reason for Consultation: Carotid stenosis
Medical History
-
Chief Complaint: Right leg weakness and difficulty speaking
History of Present Illness:
78 yo female with PMH significant for PE/DVT, HTN, DLP, DM, Anxiety, hyperparathyroidism, GERD, OA and migraines presented to the ER on 07/20/24 with right lower extremity weakness and speech issue/aphasia. Pt had developed right leg heaviness around
11am and symptoms improved once arrived to the ER and resolved shortly after. Pt denied prior symptoms or events similar.
CTA - 50% stenosis of ICA bilat calcified plaque at bifurcation
Vascular consult for carotid stenosis. Dr Walters saw pt at bedside. Pt reports resolution of symptoms and feeling back at her baseline. Denied prior stroke-like symptoms.
Past Medical History
Past Medical History: Other (hernia, PE/DVT, HTN, DLP, DM, Anxiety, hyperparathyroidism, GERD, OA and migraines )
Past Surgical History: Other (Cholecystectomy, Gynocological (ROSARIO/BSO), Orthopedic (Left TKA; right and left rotator cuff repairs) and Other (Bilateral cataract surgery))
Social History
Tobacco: Non-Smoker
Alcohol: Occasional
Drug: None
Family History
Family History: Reviewed & Not Pertinent
Allergies / Home Medications
Allergy/AdvReac Type Severity Reaction Status Date / Time
erythromycin base Allergy 'Shakey' Verified 09/05/22 18:21
Penicillins Allergy Headache Verified 09/05/22 18:21
�Medication �Instructions �Recorded �Confirmed �Type
amitriptyline 10 mg tablet 10 mg PO HS 08/16/15 07/20/24 History
escitalopram oxalate 10 mg tablet 10 mg PO DAILY 08/16/15 07/20/24 History
clonazepam 0.5 mg tablet 0.25 mg PO HS 12/06/18 07/20/24 History
glucosamine sulf dipotassium Cl 1 ea PO HS 12/15/18 07/20/24 History
500 mg-chondroitin sulf 400 mg
tablet
ascorbic acid (vitamin C) 500 mg 500 mg PO DAILY 09/03/22 07/20/24 History
tablet (Vitamin C)
atorvastatin 40 mg tablet (Lipitor) 40 mg PO DAILY 09/03/22 07/20/24 History
cholecalciferol (vitamin D3) 25 25 mcg PO DAILY 09/03/22 07/20/24 History
mcg (1,000 unit) capsule (Vitamin
D3)
ferrous sulfate 325 mg (65 mg 325 mg PO HS 09/03/22 07/20/24 History
iron) tablet (Feosol)
glycopyrrolate 1 mg tablet 1 mg PO DAILY 09/03/22 07/20/24 History
omeprazole 20 mg capsule,delayed 20 mg PO DAILY 09/03/22 07/20/24 History
release
propranolol 20 mg tablet 20 mg PO BID 09/03/22 07/20/24 History
rivaroxaban 10 mg tablet (Xarelto) 10 mg PO DAILY 09/03/22 07/20/24 History
clonazepam 0.5 mg tablet 0.5 mg PO BIDPRN PRN anxiety 07/20/24 07/20/24 History
metformin 500 mg tablet 500 mg PO BID 07/20/24 07/20/24 History
Review of Systems
-
History Source: Patient
All other systems: Negative unless noted
EENT: Reports No Symptoms
Respiratory: Reports No Symptoms
Cardiac: Reports No Symptoms
Abdomen/GI: Reports No Symptoms
: Reports No Symptoms
Musculoskeletal: Reports No Symptoms
Skin: Reports No Symptoms
Neurological: Reports Weakness (resolved)
Physical Exam
Vital Signs
Temp Pulse Resp BP Pulse Ox
97.8 F 81 20 135/84 99
07/23/24 07:00 07/23/24 07:00 07/23/24 07:00 07/23/24 07:00 07/23/24 07:00
Lab Results
07/23/24 06:45
07/23/24 06:45
Troponin I < 0.012 ng/ml 07/20/24 14:18
Physical Exam
General: No Apparent Distress
HEENT: Normocephalic and Atraumatic
Respiratory: Non Labored Respirations
Cardiac: Other (+2 radial pulse BL); Negative JVD
GI: Soft, Non Tender and Non Distended
Neuro: Awake, Alert, Oriented and No Motor Deficits
Psych: Calm
Pulses: Bilateral Dorsalis Pedis: +2
Assessment / Plan
-
Left hemispheric TIA with right leg weakness and dysarthria
Plan:
- MRI pending
- check carotid duplex
- card eval to assess risk for CEA
- tentative CEA next week pending above
Data Reviewed
-
CT Scan: Discussed with Patient
[2024-07-23] MEDS: NOVOLOG FLEXPEN-LOW RESISTANCE SC ×3 (09:09→15:49)
[2024-07-23] MEDS: VITAMIN C 500 MG PO (09:12)
[2024-07-23] MEDS: VITAMIN D3 (cholecalciferol) 25 MCG PO (09:13)
[2024-07-23] MEDS: ROBINUL 1 MG PO (09:13)
[2024-07-23] MEDS: LOW STRENGTH ASPIRIN 81 MG PO (09:13)
[2024-07-23] MEDS: PROTONIX 40 MG PO (09:13)
[2024-07-23] MEDS: LOPRESSOR 12.5 MG PO ×2 (09:13→20:30)
[2024-07-23] MEDS: LEXAPRO 10 MG PO (09:13)
[2024-07-23] MEDS: LIPITOR 80 MG PO (09:13)
[2024-07-23] MEDS: KLONOPIN 0.5 MG PO ×2 (09:34→17:45)
--- NOTE | 2024-07-23 09:45 | W.PN.HOSP.TC ---
Today's Communication/Plan
-
US carotids
pending further VascSX mgmt
Assessment / Plan
Assessment / Plan
78yo F with PMHX of carotid stenosis, HLD, anxiety, DM, VTE on Xarelto came with transient RLL weakness and numbness, admitted for TIA/CVA. Telemetry without clinically significant arrhythmia, CTA showed b/l carotid stenosis 50-69% with progression
on R. Neurologist advised VascularSx eval and patient might need CEA.
A/P:
#TIA
MRI brain without CVA
Telemetry without clinically significant arrhythmia
LDL 127
HgbA1c pending
Neurologist followed
ASA, statin
#B/L carotid stenosis worsened on R
VascSx eval
US carotids pending ahead pf possible CEA
#CHronic recurrent mild transaminitis with fatty liver disease on CT in 2022
#HX of HepB
outpatient follow up with PCP
cont statin
#Mild MR
#Moderate AR
cardiology folowed, provided risk assessment before possible CEA
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
Outpatient MRI
#Empty sella
no signs of hypopituitarism
#HX of VTE
holding Xarelto while preparing for CEA, restart afterwards when agreed with VascSx
#DM type 2 with unspecified complications
DM diet, Insulin SS, Accuchecks, hold metformin
#Anxiety D/O
#EssentiaL HTN
#Hyperparathyroidism
#DEEP
cont home meds
DVT ppx Lovenox
Full code
I have spent at least 37min reviewing chart, test results, communication with consultants and providing direct patient care
Anticipated Discharge: > 48 hours
Subjective/Interval History
-
Date of Service: July 23, 2024
Objective Data
-
Labs:
Laboratory Results
07/23/24
06:45
WBC 7.5
Hgb 12.7
Hct 37.8
Plt Count 232
Sodium 139
Potassium 4.4
Chloride 104
Carbon Dioxide 26
BUN 17
Creatinine 0.6
Glucose 124 H
Calcium 9.7
Total Bilirubin 0.5
AST 41 H
ALT 69 H
Alkaline Phosphatase 58
Vital Signs:
Vital Signs
Temp Pulse Resp BP Pulse Ox
97.8 F 81 20 135/84 99
07/23/24 07:00 07/23/24 07:00 07/23/24 07:00 07/23/24 07:00 07/23/24 07:00
I&O
07/22/24 07/23/24 07/24/24
06:59 06:59 06:59
Intake Total 1440 / 1440 840 / 840
Balance 1440 / 1440 840 / 840
Review of Systems
-
History Source: Patient
All other systems: Reviewed and negative
Physical Exam
-
General: No Apparent Distress
HEENT: Normocephalic
Respiratory: Clear to Auscultation
Cardiac: Regular Rhythm
GI: Soft, Nontender and Nondistended
Musculoskeletal: Edema, Left Lower Extrem (chronic)
Neuro: Awake, Alert, Oriented and AO x 3
Psych: Calm
[2024-07-23 11:51] LABS: Glucose - Point of Care 125 mg/dl (70-99)
--- NOTE | 2024-07-23 12:59 | CM ---
Chart reviewed. Care ongoing at this time.
PT rec HH, patient agreeable to [facility], referral already completed
Plan: Home w/ [facility] when stable
[2024-07-23 13:24] LABS: Glycohemoglobin (HgbA1c) 7.6 % (4.0-5.6)
[2024-07-23 15:46] LABS: Glucose - Point of Care 129 mg/dl (70-99)
--- NOTE | 2024-07-23 16:04 | W.PN.CARDCBS ---
Addendum entered and electronically signed by Chavo Rod MD 07/23/24 17:39:
Patient presented 07/20 with left hemispheric TIA/CVA, with complete word near complete resolution of symptoms
PMH: Mild to moderate AI, mild MR, anemia, diabetes, anxiety depression, history of DVT, PE parathyroidism, migraines, SB
Current medications: Aspirin 81 mg a day, amitriptyline 10 at bedtime, colecalciferol, Klonopin 0.5 mg twice daily and 0.25 at bedtime, escitalopram, iron, glycopyrrolate, pantoprazole 40 mg a day, atorvastatin 80 mg a day, metoprolol 12.5 twice
daily, ferritin,
135/84, pulse 81, no distress, daughter at bedside, head neck exam unremarkable, lungs are clear, regular rate and rhythm with systolic murmur JVD okay, not much anton
Hemoglobin 12.7, white count 7.5, BUN/creatinine 17 and 0.6, AST 41, ALT 69
Echo 07/23/2024: Small LV, moderate LVH, EF 60-65%, MAC, thickened leaflets, mild MR
Impression:
Left hemispheric TIA/CVA July 20, 2024
Mild aortic regurgitation
Mild mitral regurgitation
Hypercholesterolemia
Type 2 diabetes
Anxiety/depression
History of DVT and pulmonary embolus
Hyperparathyroidism
History of hepatitis B
Migraines
Plan:
Stable cardiac status. From cardiac standpoint okay to proceed with CEA
Echocardiogram is stable and satisfactory
No medication changes present from cardiac standpoint.
Original Note:
Today's Communication / Plan
-
Echo showed preserved EF without significant valve disease
Impression / Plan
-
PCP: Aixa ROLLINS
Card: Dr. Stanford, last seen 09/2022
Impression:
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
Mild to moderate aortic regurgitation
Mild mitral regurgitation
Hypercholesterolemia
Type 2 diabetes
Anxiety/depression
History of DVT and pulmonary embolus
Hyperparathyroidism
History of hepatitis B
Migraines
Echo 07/23/2024: EF 60 to 65%, mild MR, mild aortic regurgitation
Plan:
-Carotid u/s with less than 50% ICA stenoses B/L. Vascular surgery following for possible carotid revascularization.
-From a cardiac standpoint, tele reviewed by me 07/23/24 and no atrial arrhythmia
-Echo noted above and EF preserved without significant valve disease
-Patient is chronically on Xarelto 10 mg daily for h/o DVT/PE, but dose has been on hold for possible surgery and patient ordered Lovenox 40 mg SQ daily
-Outpatient dose of propranolol 20 mg BID has been changed to Lopressor 12.5 mg BID
-Outpatient dose of atorvastatin was increased to 80 mg daily
- Patient is scheduled to see Dr. Stanford in the office on 08/07/2024 at 1120 and prior to that was last seen in 2022
Progress Note - Numerical Analysis Group Manager
Subjective
Date of Service: July 23, 2024
Feels well, speech is almost back to baseline
Objective
Labs:
07/23/24 06:45
07/23/24 06:45
Labs
Hgb 12.7 g/dL (12.0-16.0) 07/23/24 06:45
Hct 37.8 % (37.0-47.0) 07/23/24 06:45
Plt Count 232 10^3/uL (130-400) 07/23/24 06:45
PT 17.7 Sec (11.4-14.6) H 07/20/24 14:18
INR 1.43 07/20/24 14:18
APTT 26.5 Sec (23.4-35.0) 07/20/24 14:18
Sodium 139 mmol/L (135-145) 07/23/24 06:45
Potassium 4.4 mmol/L (3.5-5.1) 07/23/24 06:45
BUN 17 mg/dl (7-17) 07/23/24 06:45
Creatinine 0.6 mg/dL (0.6-1.0) 07/23/24 06:45
Glucose 124 mg/dl (70-99) H 07/23/24 06:45
Vital Signs and I&O:
Vital Signs
Temp Pulse Resp BP Pulse Ox
97.7 F 81 20 124/60 96
07/23/24 15:00 07/23/24 15:00 07/23/24 15:00 07/23/24 15:00 07/23/24 15:00
Vital Signs
Temp Pulse Resp BP Pulse Ox
97.7 F 81 20 124/60 96
07/23/24 15:00 07/23/24 15:00 07/23/24 15:00 07/23/24 15:00 07/23/24 15:00
Intake & Output
07/21/24 07/22/24 07/23/24 07/24/24
06:59 06:59 06:59 06:59
Intake Total 1440 / 1440 840 / 840
Balance 1440 / 1440 840 / 840
Physical Exam
Physical Exam
GEN: AAOx3
HEENT: EOMI
LUNGS: RA
CV: SR on tele
--- NOTE | 2024-07-23 16:20 | W.PN.UPDATE ---
Update Note
Progress Note Update
Seen and evaluated. Seen initially by Dr. Walters over the weekend. Earlier had come by to see her, but patient was out of room but I spoken to her daughter. Now the other daughter is at the bedside. I spoke to both the patient and her
daughter currently at the bedside. They relate again symptoms of right leg numbness that it began acutely. And then while being transferred to the hospital she had expressive aphasia. She was thinking something but could not get the words out.
Entirety of symptoms lasted likely less than an hour. No prior antecedent TIA type symptoms. No subsequent symptoms. She is on Xarelto for A-fib. Not on any antiplatelet therapy as outpatient.
Exam as noted in her other notes. No neurologic findings currently.
I have reviewed carotid duplex imaging and report, CT angiogram imaging and report, MRI report.
Plan/ Patient appears to have had true hemispheric lateralized left-sided TIA type symptoms. No infarct noted on MRI. She does have a carotid stenosis (based on CT scan at least 50%, per report 50 to 70%). Carotid duplex less impressive. In
addition I compared CT scan imaging in the region of interest namely the left carotid bifurcation and proximal internal carotid artery on the current scan to the scan dated 2021. I compared [id number], and there has been no change in the
morphology of the plaque or the degree of stenosis. The entirety looks exactly the same. Therefore it is a little bit hard to fathom that this caused recent TIA type symptoms. However certainly platelet aggregation adherent to a plaque that been
at thrombolysis may not leave any trace on the imaging. The other point to argue against carotid revascularization would be carotid duplex that demonstrates again less than 50% carotid stenosis. The converse however is that her symptoms seemed
definitively true, and she does have moderate carotid stenosis on CT scan imaging. Therefore I am somewhat torn here, and I discussed this frankly with the patient and her daughter at the bedside. I discussed both conservative strategies as well
as invasive strategies. As far as invasive strategies I discussed carotid endarterectomy and TCAR extensively. I discussed both procedures in detail. I discussed risks of both procedures. Discussed that I would generally favor carotid
endarterectomy, but TCAR is not unreasonable. In her, TCAR generally would add the need for dual antiplatelet therapy and given that she is on Xarelto that may increase her bleeding risk. Therefore generally I would favor carotid endarterectomy in
her. Discussed procedure at length as noted above. Risks including but not limited to bleeding, infection, cardiac complication/WV, cranial nerve injury, stroke (in symptomatic setting up to 2%) all discussed. They understand all and will think
it over and discuss it as a family. If she elects for revascularization, would favor holding Xarelto for 24 hours prior, and therefore would plan for OR 07/25/2024 if they wish to undergo carotid revascularization. If not, would favor
continuing an antiplatelet agent (aspirin or Plavix) along with anticoagulation. Note we did discuss A-fib as an alternative source of TIA type events. (But patient has been compliant on anticoagulation).
[2024-07-23 17:16] LABS: Glucose - Point of Care 184 mg/dl (70-99)
[2024-07-23] MEDS: LOVENOX 40 MG SC (17:45)
[2024-07-23] MEDS: MIRALAX 17 GRAMS PO (17:45)
[2024-07-23] MEDS: KLONOPIN 0.25 MG PO (21:06)
[2024-07-23] MEDS: FEOSOL 325 MG PO (21:06)
[2024-07-23] MEDS: ELAVIL 10 MG PO (21:06)
[2024-07-23 21:44] LABS: Glucose - Point of Care 184 mg/dl (70-99)
[2024-07-24 03:37] VITALS: BP 121/73
[2024-07-24 07:12] VITALS: BP 135/77
[2024-07-24 07:50] LABS: Glucose - Point of Care 136 mg/dl (70-99)
[2024-07-24] MEDS: NOVOLOG FLEXPEN-LOW RESISTANCE SC ×2 (08:37→16:52)
--- NOTE | 2024-07-24 09:37 | VNURNOTE ---
Home Health Liaison met with patient and daughter at bedside to discuss [facility] nurse/therapy, visits, schedule and homebound status. they are agreeable and understand that visits at home will be 2-3 x per week to assess and teach medical management.
Patient is aware that [facility] will contact them for start of care in 1-2 days after discharge from .
[facility] referral accepted in [facility].
--- NOTE | 2024-07-24 09:38 | VNURNOTE ---
Home Health Liaison met with patient and daughter at bedside to discuss [facility] nurse/therapy, visits, schedule and homebound status. they are agreeable and understand that visits at home will be 2-3 x per week to assess and teach medical management.
Patient is aware that [facility] will contact them for start of care in 1-2 days after discharge from . Explained to patient that she cannot have [facility] concurrently w/outpt PT. patient confirmed she has already put outpt PT on hold.
[facility] referral accepted in [facility].
[2024-07-24] MEDS: LOPRESSOR 12.5 MG PO ×2 (09:59→22:00)
[2024-07-24] MEDS: KLONOPIN 0.5 MG PO ×2 (10:01→15:57)
[2024-07-24] MEDS: ROBINUL 1 MG PO (10:02)
[2024-07-24] MEDS: VITAMIN D3 (cholecalciferol) 25 MCG PO (10:02)
[2024-07-24] MEDS: LIPITOR 80 MG PO (10:03)
[2024-07-24] MEDS: VITAMIN C 500 MG PO (10:03)
[2024-07-24] MEDS: PROTONIX 40 MG PO (10:03)
[2024-07-24] MEDS: LOW STRENGTH ASPIRIN 81 MG PO (10:03)
[2024-07-24] MEDS: LEXAPRO 10 MG PO (10:03)
[2024-07-24] MEDS: MIRALAX 17 GRAMS PO (10:04)
--- NOTE | 2024-07-24 10:48 | W.PN.CARDCBS ---
Addendum entered and electronically signed by Kevin Zabala DO 07/24/24 17:36:
I saw and examined the patient.
The Cow Rider's note was reviewed and I agree with the note.
Comment:
Plan:
Remains compensated from a cardiac standpoint for CEA
Eventually resume Xarelto for hx of DVT/PE, no hx of atrial arrhythmia.
Echo reviewed and EF preserved with no high-grade valve disease.
Patient is scheduled to see Dr. Stanford in the office on 08/07/2024 at 11:20 and prior to that was last seen in 2022.
Original Note:
Today's Communication / Plan
-
No documented h/o atrial arrhythmia
Eventually resume Xarelto for h/o DVT/PE
Impression / Plan
-
PCP: Aixa ROLLINS
Card: Dr. Stanford, last seen 09/2022
Impression:
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
Left hemispheric TIA
B/L carotid stenosis
Mild to moderate aortic regurgitation
Mild mitral regurgitation
Hypercholesterolemia
Type 2 diabetes
Anxiety/depression
h/o DVT and PE
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
Hyperparathyroidism
History of hepatitis B
Migraines
Echo 07/23/2024: EF 60 to 65%, mild MR, mild aortic regurgitation
Plan:
-Vascular surgery note reviewed by me. Patient and family considering options of medical therapy with OAC plus antiplatelet agent vs left CEA.
-From a cardiac standpoint, tele reviewed by me 07/23/24 and no atrial arrhythmia
-Echo noted above and EF preserved without significant valve disease
-Patient is chronically on Xarelto 10 mg daily for h/o DVT/PE, but dose has been on hold for possible surgery and patient ordered Lovenox 40 mg SQ daily
-Patient does not have a documented h/o atrial arrhythmia
-Outpatient dose of propranolol 20 mg BID has been changed to Lopressor 12.5 mg BID
-Outpatient dose of atorvastatin was increased to 80 mg daily
-Patient is scheduled to see Dr. Stanford in the office on 08/07/2024 at 11:20 and prior to that was last seen in 2022
Progress Note - Pool Coordinator
Subjective
Date of Service: July 24, 2024
Denies pain, feels she is back to baseline
Objective
Labs:
07/23/24 06:45
07/23/24 06:45
Labs
Hgb 12.7 g/dL (12.0-16.0) 07/23/24 06:45
Hct 37.8 % (37.0-47.0) 07/23/24 06:45
Plt Count 232 10^3/uL (130-400) 07/23/24 06:45
PT 17.7 Sec (11.4-14.6) H 07/20/24 14:18
INR 1.43 07/20/24 14:18
APTT 26.5 Sec (23.4-35.0) 07/20/24 14:18
Sodium 139 mmol/L (135-145) 07/23/24 06:45
Potassium 4.4 mmol/L (3.5-5.1) 07/23/24 06:45
BUN 17 mg/dl (7-17) 07/23/24 06:45
Creatinine 0.6 mg/dL (0.6-1.0) 07/23/24 06:45
Glucose 124 mg/dl (70-99) H 07/23/24 06:45
Vital Signs and I&O:
Vital Signs
Temp Pulse Resp BP Pulse Ox
98.3 F 82 18 135/77 98
07/24/24 07:12 07/24/24 09:59 07/24/24 07:12 07/24/24 09:59 07/24/24 07:12
Vital Signs
Temp Pulse Resp BP Pulse Ox
98.3 F 82 18 135/77 98
07/24/24 07:12 07/24/24 09:59 07/24/24 07:12 07/24/24 09:59 07/24/24 07:12
Intake & Output
07/22/24 07/23/24 07/24/24 07/25/24
06:59 06:59 06:59 06:59
Intake Total 1440 / 1440 840 / 840
Balance 1440 / 1440 840 / 840
Physical Exam
Physical Exam
GEN: AAOx3
HEENT: EOMI
LUNGS: RA
CV: SR on tele
[2024-07-24 10:58] VITALS: BP 133/76
[2024-07-24 11:10] LABS: Glucose - Point of Care 224 mg/dl (70-99)
--- NOTE | 2024-07-24 11:25 | W.PN.UPDATE ---
Update Note
Progress Note Update
Met with patient and daughter Breana at bedside, both state family had time to review among themselves Marcos Whitfield M.D. conversation from yesterday regarding revascularization of left carotid arterectomy. Patient and family are in agreement that they
would like to proceed with left carotid endarterectomy for stroke prevention, will add to the OR schedule tomorrow 07/25/2024, n.p.o. after midnight, please continue to hold home Xarelto this evening. Plan relayed to hospitalist via [place] text.
[2024-07-24] MEDS: NOVOLOG FLEXPEN-LOW RESISTANCE 2 UNITS SC (11:48)
--- NOTE | 2024-07-24 11:56 | W.PN.HOSP.TC ---
Today's Communication/Plan
-
For CEA in AM
Assessment / Plan
Assessment / Plan
78yo F with PMHX of carotid stenosis, HLD, anxiety, DM, VTE on Xarelto came with transient RLL weakness and numbness, admitted for TIA/CVA. Telemetry without clinically significant arrhythmia, CTA showed b/l carotid stenosis 50-69% with progression
on R. Neurologist advised VascularSx eval and patient agreed for CEA as per her conversation with surgical service
A/P:
#TIA
MRI brain without CVA
Telemetry without clinically significant arrhythmia
LDL 127
HgbA1c 7.6%
Neurologist followed
ASA, statin
#B/L carotid stenosis worsened on R
VascSx eval
US carotids pending ahead pf possible CEA
#CHronic recurrent mild transaminitis with fatty liver disease on CT in 2022
#HX of HepB
outpatient follow up with PCP
cont statin
#Mild MR
#Moderate AR
cardiology folowed, provided risk assessment before possible CEA
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
Outpatient MRI
#Empty sella
no signs of hypopituitarism
#HX of VTE
holding Xarelto while preparing for CEA, restart afterwards when agreed with VascSx
#DM type 2 with unspecified complications
DM diet, Insulin SS, Accuchecks, hold metformin
#Anxiety D/O
#EssentiaL HTN
#Hyperparathyroidism
#DEEP
cont home meds
DVT ppx Lovenox
Full code
I have spent at least 37min reviewing chart, test results, communication with consultants and providing direct patient care
Anticipated Discharge: > 48 hours
Subjective/Interval History
-
Date of Service: July 24, 2024
Objective Data
-
Vital Signs:
Vital Signs
Temp Pulse Resp BP Pulse Ox
98.0 F 89 17 133/76 97
07/24/24 10:58 07/24/24 10:58 07/24/24 10:58 07/24/24 10:58 07/24/24 10:58
I&O
07/23/24 07/24/24 07/25/24
06:59 06:59 06:59
Intake Total 840 / 840
Balance 840 / 840
Review of Systems
-
History Source: Patient
All other systems: Reviewed and negative
Physical Exam
-
General: No Apparent Distress
HEENT: Normocephalic
GI: Soft
Neuro: Awake, Alert, Oriented, AO x 3 and No Motor Deficits
Psych: Calm
[2024-07-24 15:00] VITALS: BP 110/78
[2024-07-24 16:49] LABS: Glucose - Point of Care 149 mg/dl (70-99)
[2024-07-24] MEDS: LOVENOX 40 MG SC (16:53)
[2024-07-24 21:51] LABS: Glucose - Point of Care 138 mg/dl (70-99)
[2024-07-24] MEDS: KLONOPIN 0.25 MG PO (22:00)
[2024-07-24] MEDS: ELAVIL 10 MG PO (22:00)
[2024-07-24] MEDS: FEOSOL 325 MG PO (22:00)
[2024-07-24 23:31] VITALS: BP 132/76
[2024-07-25] VITALS (18 sets, daily range): BP systolic 108–171; BP diastolic 52–90
[2024-07-25 06:07] LABS: Glucose - Point of Care 138 mg/dl (70-99)
[2024-07-25] MEDS: NOVOLOG FLEXPEN-LOW RESISTANCE SC ×2 (06:10→16:35)
[2024-07-25 08:09] LABS: PT 12.6 Sec (11.4-14.6)
[2024-07-25 08:22] LABS: Hematocrit 38.6 % (37.0-47.0); Hemoglobin 12.5 g/dL (12.0-16.0); Mean Corp Hgb Conc. 32.4 g/dL (33.0-37.0); Mean Corpuscular Hgb 28.3 pg (27.0-31.0); Mean Corpuscular Volume 87.3 fL (81.0-99.0); Mean Platelet Volume 11.2 fL (7.4-10.4); Platelet Count 245 10^3/uL (130-400); Red Blood Cell Count 4.42 10^6/uL (4.20-5.40); Red Cell Dist. Width 15.9 % (11.5-14.5); White Blood Cell Count 7.2 10^3/uL (4.8-10.8)
[2024-07-25 08:30] LABS: APTT 21.7 Sec (23.4-35.0); INR 0.89
[2024-07-25 08:47] LABS: Blood Urea Nitrogen 16 mg/dl (7-17); Calcium 9.6 mg/dl (8.4-10.2); Carbon Dioxide 26 mmol/L (22-30); Chloride 105 mmol/L (98-107); Estimated Creatinine Clearance 63 ml/min; Glucose 138 mg/dl (70-99); Potassium 4.7 mmol/L (3.5-5.1); Sodium 141 mmol/L (135-145); eGFR > 60.00
[2024-07-25] MEDS: KLONOPIN 0.25 MG PO ×3 (08:56→21:18)
[2024-07-25] MEDS: LIPITOR 80 MG PO (08:56)
[2024-07-25] MEDS: ROBINUL 1 MG PO (08:56)
[2024-07-25] MEDS: LOPRESSOR 12.5 MG PO ×2 (08:56→21:17)
[2024-07-25] MEDS: VITAMIN C PO (08:57)
[2024-07-25] MEDS: LOW STRENGTH ASPIRIN 81 MG PO (08:57)
[2024-07-25] MEDS: LEXAPRO 10 MG PO (08:57)
[2024-07-25] MEDS: MIRALAX PO (08:57)
[2024-07-25] MEDS: PROTONIX PO (08:57)
[2024-07-25] MEDS: VITAMIN D3 (cholecalciferol) PO (08:58)
[2024-07-25] MEDS: PERIDEX 0.12% ORAL RINSE 15 ML PO (09:28)
[2024-07-25] MEDS: VANCOCIN 200 IV (09:28)
[2024-07-25] MEDS: BACTROBAN 2% OINTMENT 1 APPLIC NASAL (09:28)
--- NOTE | 2024-07-25 10:23 | CM ---
Chart reviewed. For CEA today
[facility] accepted for services at d/c
CM will cont to follow for d/c needs
Plan: Home w/ [facility] when stable
--- NOTE | 2024-07-25 10:24 | W.SUR.PREOP ---
Pre-Operative Surgical Note
-
I have examined this patient prior to the performance of the scheduled procedure.
The patient's condition is unchanged from the time of the current History and
Physical and the patient is able to undergo the scheduled procedure.
--- NOTE | 2024-07-25 10:29 | W.PN.HOSP.TC ---
Today's Communication/Plan
-
stable to proceed to CEA
Assessment / Plan
Assessment / Plan
78yo F with PMHX of carotid stenosis, HLD, anxiety, DM, VTE on Xarelto came with transient RLL weakness and numbness, admitted for TIA/CVA. Telemetry without clinically significant arrhythmia, CTA showed b/l carotid stenosis 50-69% with progression
on R. Neurologist advised VascularSx eval and patient agreed for CEA as per her conversation with surgical service
A/P:
#TIA
MRI brain without CVA
Telemetry without clinically significant arrhythmia
LDL 127
HgbA1c 7.6%
Neurologist followed
ASA, statin
#B/L carotid stenosis worsened on R
VascSx eval
US carotids pending ahead pf possible CEA
#CHronic recurrent mild transaminitis with fatty liver disease on CT in 2022
#HX of HepB
outpatient follow up with PCP
cont statin
#Mild MR
#Moderate AR
cardiology folowed, provided risk assessment before possible CEA
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
Outpatient MRI
#Empty sella
no signs of hypopituitarism
#HX of VTE
holding Xarelto while preparing for CEA, restart afterwards when agreed with VascSx
#DM type 2 with unspecified complications
DM diet, Insulin SS, Accuchecks, hold metformin
#Anxiety D/O
#EssentiaL HTN
#Hyperparathyroidism
#DEEP
cont home meds
DVT ppx Lovenox
Full code
I have spent at least 37min reviewing chart, test results, communication with consultants and providing direct patient care
Anticipated Discharge: > 48 hours
Subjective/Interval History
-
Date of Service: July 25, 2024
Objective Data
-
Labs:
Laboratory Results
07/25/24
06:36
WBC 7.2
Hgb 12.5
Hct 38.6
Plt Count 245
PT 12.6
INR 0.89
APTT 21.7 L
Sodium 141
Potassium 4.7
Chloride 105
Carbon Dioxide 26
BUN 16
Creatinine 0.7
Glucose 138 H
Calcium 9.6
Vital Signs:
Vital Signs
Temp Pulse Resp BP Pulse Ox
97.6 F 77 18 171/90 98
07/25/24 08:02 07/25/24 08:56 07/25/24 08:02 07/25/24 08:56 07/25/24 08:02
I&O
07/24/24 07/25/24 07/26/24
06:59 06:59 06:59
Intake Total 120 / 120
Balance 120 / 120
Review of Systems
-
History Source: Patient
All other systems: Reviewed and negative
Physical Exam
-
General: No Apparent Distress
HEENT: Normocephalic
Respiratory: Clear to Auscultation
Cardiac: Regular Rhythm
Musculoskeletal: Edema, Right Lower Extrem (trace) and Edema, Left Lower Extrem (trace)
Skin: Warm
Neuro: Awake, Alert, Oriented and AO x 3
Psych: Calm
--- NOTE | 2024-07-25 12:19 | W.SUR.POST ---
Surgical Immediate Post Op
Note
Pre Op Diagnosis: Carotid stenosis
Post Op Diagnosis: same
Procedure Performed: Left carotid endarterectomy with bovine pericardial patch angioplasty and EEG monitoring
Primary Surgeon: Luis Alberto
Assist: Sarkis YAÑEZ
Anesthesia: General
Estimated Blood Loss: 15cc
Fluids: See anesthesia flow sheet
Drains/Shunts: None
Specimens/Cultures: carotid plaque
Doppler/Duplex/Angio (Y/N): Y
Complications: None
Operative Findings: Woke from anesthesia moving all extremities
--- NOTE | 2024-07-25 12:27 | OR.RPT ---
Operative Report
Operative Report
PROCEDURE DATE: 07/25/2024
Preoperative diagnosis: Symptomatic left carotid artery stenosis.
Postoperative diagnosis: Same
Procedure: Left carotid endarterectomy with bovine pericardial patch angioplasty and intraoperative EEG/SSEP monitoring.
Surgeon: Luis Alberto
Demolition Specialist: MICHELLE Dockery, required for all aspects of procedure including assistance with traction/countertraction, following of suture line, assistance with closure.
Complications: None
Anesthesia: General
Indications for procedure:
Moderate to high-grade left carotid stenosis noted on CT angiogram. Patient presented with relatively clear-cut left hemispheric type symptoms (expressive aphasia and right leg weakness)./Benefits/alternatives of carotid revascularization
extensively discussed. Patient and her family understood all wished to proceed.
Description of procedure:
Patient was identified brought to the operating room placed on the table in supine position. After the adequate administration of anesthesia and perioperative antibiotics she was prepped and draped in the standard surgical fashion. A standard
preoperative timeout was undertaken and everybody was in agreement the plan. A standard longitudinal incision was made in the left neck that was carried through the skin subcutaneous tissue. Using the electrocautery dissection was carried through
the platysma muscle layer and then alongside the anterior medial border of the sternocleidomastoid muscle. Then using a combination of sharp dissection with the Metzenbaum scissors and electrocautery I dissected along the anterior medial border of
the internal jugular vein. The common facial vein branch was ligated between silk ties and then divided. Exposure was slightly challenging due to minimal mobility of her neck (not great rotation). I then deepened my retraction. The common
carotid artery was identified and carefully dissected away from the surrounding structures take great care to avoid any injury to the structures. A vessel loop was passed around it which was double looped, but not yet tightened. Note the vagus
nerve was visualized in its usual course posterior lateral to the common carotid artery, and was protected from harm's way. I then continued my dissection up the common carotid artery to the bulb staying only on the anterior surface of the carotid
artery. Then I carried the dissection up to the internal carotid artery and then to the distal internal carotid artery. I identified where it was soft and carefully circumferentially dissected the internal carotid artery with minimal mobilization
and passed a vessel loop around it. Note the hypoglossal nerve was clearly visualized in its usual course, and was crossing anterior to the more distal internal carotid artery, and was preserved from harm's way. The patient was given an
appropriate dose of heparin 7000 units. Next I dissected the anterior surface of the external carotid artery and superior thyroid branches. In addition to the superior thyroid branch, there was an additional branch immediately adjacent to it which
was dissected together with the superior thyroid branch. In addition there was another medial coursing branch in the mid to distal common carotid artery which was also controlled the vessel. These were then carefully circumferentially dissected
with minimal mobilization and vessel loops passed around these which were double looped but not yet tightened. After 3 minutes of heparin circulation time and confirmation of optimization of the blood pressure with my anesthesiology colleagues, I
clamped the distal internal carotid artery where it was soft. There was no immediate EEG or SSEP changes. After 1 minute of test clamp time there was no changes noted. Therefore at this point, the vessel loops on the external carotid artery and
superior thyroid branches, and additional branch were tightened and the common carotid artery was clamped where it was soft proximally. An arteriotomy was made on the common carotid artery with an 11 blade and extended using a Haley scissor. I
extended the arteriotomy onto the mid to distal internal carotid artery. There is noted to be chronic calcified plaque predominantly in the posterior wall, but about 1 cm onto the internal carotid artery the plaque was somewhat friable with small
calcified plaque debris. Unclear if this occurred from the arteriotomy or whether this was a very friable plaque to begin with, I favor the latter. This would lend credence to recent symptomatology. A [place] was then used to endarterectomized the
plaque. An endarterectomy plane was created, and the plaque was then endarterectomized. Distally I feathered the plaque out to a nice clean endpoint in the distal internal carotid artery. Next I endarterectomized the intima back to normal intima
in the common carotid artery, and the intima was cut flush there. I then grasped the plaque and everted plaque out of the origin of the external carotid artery. The plaque was then sent off for specimen. Note in the common carotid artery and the
external carotid artery origin the plaque came out very piecemeal as it was very calcified shard like plaque that was not very thickened or stenosis causing at that level. The origin of the external carotid artery was carefully visualized and any
fine debris were removed with fine forceps. Proximal and distal endpoints were then carefully inspected. Any fine debris was removed with fine forceps, and the intima was noted to be nicely adherent proximally and distally. Next any fine debris
were removed throughout the endarterectomy bed with fine forceps. I then flushed heparinized saline. I was very satisfied. Then, I used a bovine pericardial patch to sew a patch angioplasty with a running 6-0 Prolene suture. Prior to completing
and tying down my suture line, I backbled sequentially each branch and reclamped each branch prior to unclamping the next branch. I then irrigated with heparinized saline. Then I completed and tied down my suture line. We then restored flow in
the common carotid and external carotid arteries. Finally, we released flow in the internal carotid artery. There was excellent pulsatile flow in all 3 vessels. There was an excellent Doppler signal in the internal carotid artery distal to the
patch with a good normal low resistance Doppler signal. There was a good Doppler signal in the external carotid artery as well. A few 6-0 Prolene [id number] sutures were placed along any bleeding points along the suture line. Protamine was
given to reverse the heparin. Hemostasis was completely achieved. We then irrigated and confirmed full hemostasis. We then closed in layers with 2-0 Vicryl layer to reapproximate the sternocleidomastoid muscle, followed by 3-0 Vicryl platysma
muscle running layer, followed by 4-0 Monocryl subcuticular stitch. Dermabond was applied. The patient tolerated procedure well. She awoke moving all extremities to command with tongue in the midline.
[2024-07-25 13:25] LABS: Glucose - Point of Care 177 mg/dl (70-99)
[2024-07-25 13:36] LABS: Hematocrit 37.4 % (37.0-47.0); Hemoglobin 12.3 g/dL (12.0-16.0); Mean Corp Hgb Conc. 32.9 g/dL (33.0-37.0); Mean Corpuscular Hgb 28.4 pg (27.0-31.0); Mean Corpuscular Volume 86.4 fL (81.0-99.0); Mean Platelet Volume 11.2 fL (7.4-10.4); Platelet Count 246 10^3/uL (130-400); Red Blood Cell Count 4.33 10^6/uL (4.20-5.40); Red Cell Dist. Width 15.5 % (11.5-14.5); White Blood Cell Count 11.1 10^3/uL (4.8-10.8)
[2024-07-25 13:45] LABS: INR 0.99; PT 13.6 Sec (11.4-14.6)
[2024-07-25 13:46] LABS: APTT 20.6 Sec (23.4-35.0)
[2024-07-25 13:48] LABS: Blood Urea Nitrogen 12 mg/dl (7-17); Calcium 8.9 mg/dl (8.4-10.2); Carbon Dioxide 23 mmol/L (22-30); Chloride 103 mmol/L (98-107); Estimated Creatinine Clearance 73 ml/min; Glucose 210 mg/dl (70-99); Potassium 4.1 mmol/L (3.5-5.1); Sodium 136 mmol/L (135-145); eGFR > 60.00
[2024-07-25] MEDS: DILAUDID 0.5 MG IV ×2 (13:52→22:07)
[2024-07-25] MEDS: NSS 1000 IV (14:59)
[2024-07-25] MEDS: ROXICODONE 5 MG PO (14:59)
--- NOTE | 2024-07-25 15:40 | PTCARENOTE ---
Pt received to Rm [id number] via bed from PACU at 1450. Pt awake on arrival, c/o Lt neck pain. Lt Arterial Line patent- transduced, leveled and zero-balanced. Waveform WNL. Pt received w/ Cardene infusing at 2.5mg/hr. IVF of NS @ 80 ml/hr started per
order. Lt neck surgical incision noted- well approximated w/ surgical adhesive, no ecchymosis noted. Site soft. Ice pack applied x 20 minutes q2hr. Neuro intact as documented. Physical assessment completed as documented. Pt received on O2 at 4l/min
w/ POx 98%. O2 decreased to 2l/min with Pox 94% Pt denies SOB. Pts daughters to room to visit- updated on pt's present condition, plan of care. Pt aware of bedrest orders. Tolerating sips of clear liquids w/o complication. Roxicodone administered
for c/o 5/10 Lt neck pain- see MAR for timing. Safe environment maintained.
--- NOTE | 2024-07-25 15:45 | CON.INTV ---
Consultation
Consultation Request
Date/Time Consultation Requested: 07/25/2024 - 1156
Date/Time Consultation Performed: 07/25/2024 - 1218
Requesting Provider: OTILIO Reyna
Performing Provider: Dr. Thayer
Reason for Consultation: s/p L-CEA
Medical History
-
Chief Complaint: RLE weakness + difficulty speaking
History of Present Illness:
78-year-old female with a past medical history of hypertension, PE/DVT and hiatal hernia who presented with right lower extremity weakness as well as expressive aphasia. Neurology was consulted as well as cardiology and vascular surgery. There was
concern for left hemispheric TIA and vascular surgery recommended revascularization due to risk of CVA. Today, she underwent a left carotid endarterectomy with bovine pericardial patch angioplasty and was transferred to the ICU for postoperative
monitoring. Opera Singer services consulted for additional management/recommendations.
Pt arrived to ICU from PACU at 1540 on 07/25/2024. When I saw the pt, she was resting in bed, currently on cardene gtt at 2.5mg/hr. Patient's daughter, Lois, at bedside. All questions were answered. HR 99, BP 138/70 via A-line, and SpO2 94% on
2L/min. She feels well, is mainly tired. Denies SOLIS, CP, SOB, abd pain, N/V/f/c. She has left sided neck pain.
PMHx: Migraine headaches, anemia, hyperparathyroidism, seasonal allergic rhinitis, Hx of PE/DVT, anxiety, depression, hiatal hernia, GERD, hypercholesterolemia
PSHx: Right rotator cuff repair, left TKA, ROSARIO/BSO, cholecystectomy, cataract surgery
Past Medical History
Past Medical History: Other (Above as per HPI)
Past Surgical History: Other (Above as per HPI)
Social History
Tobacco: Non-smoker
Alcohol: None
Drug: None
Personal:
Family History
Family History: CAD (Father), Cancer (Maternal uncle: lung cancer; family Hx of NHL) and Other (Father: Emphysema, DVT, anxiety; Paternal uncle: DVT; Sister: PVCs/PACs)
Allergies / Home Medications
Allergies
Allergy/AdvReac Type Severity Reaction Status Date / Time
erythromycin base Allergy 'Shakey' Verified 09/05/22 18:21
Penicillins Allergy Headache Verified 09/05/22 18:21
Home Medications
�Medication �Instructions �Recorded �Confirmed �Last Taken �Type
amitriptyline 10 mg tablet 10 mg PO HS Sleep 08/16/15 07/20/24 07/19/24 History
escitalopram oxalate 10 mg tablet 10 mg PO DAILY Mental 08/16/15 07/20/24 07/20/24 History
Health/Anxiety
clonazepam 0.5 mg tablet 0.25 mg PO HS Mental Health/Anxiety 12/06/18 07/20/24 07/19/24 History
glucosamine sulf dipotassium Cl 1 ea PO HS Supplement 12/15/18 07/20/24 07/20/24 History
500 mg-chondroitin sulf 400 mg
tablet
ascorbic acid (vitamin C) 500 mg 500 mg PO DAILY Supplement 09/03/22 07/20/24 07/20/24 History
tablet (Vitamin C)
atorvastatin 40 mg tablet (Lipitor) 40 mg PO DAILY High Cholesterol 09/03/22 07/20/24 07/20/24 History
cholecalciferol (vitamin D3) 25 25 mcg PO DAILY Supplement 09/03/22 07/20/24 07/20/24 History
mcg (1,000 unit) capsule (Vitamin
D3)
ferrous sulfate 325 mg (65 mg 325 mg PO HS Supplement 09/03/22 07/20/24 07/19/24 History
iron) tablet (Feosol)
glycopyrrolate 1 mg tablet 1 mg PO DAILY Neurological 09/03/22 07/20/24 07/20/24 History
Condition
omeprazole 20 mg capsule,delayed 20 mg PO DAILY Gastrointestinal 09/03/22 07/20/24 07/20/24 History
release Issue
propranolol 20 mg tablet 20 mg PO BID Heart 09/03/22 07/20/24 07/20/24 History
Disease/Condition
rivaroxaban 10 mg tablet (Xarelto) 10 mg PO DAILY Blood Clot 09/03/22 07/20/24 07/20/24 History
Prevention/Tx
clonazepam 0.5 mg tablet 0.25 mg PO BID Mental 07/20/24 07/24/24 Unknown History
Health/Anxiety
metformin 500 mg tablet 500 mg PO BID Diabetes 07/20/24 07/20/24 07/20/24 History
Review of Systems
-
History Source: Patient
All other systems: Negative unless noted
Vitals / Labs / Diagnostic Testing
Vital Signs
Temp Pulse Resp BP Pulse Ox
97.9 F 88 17 119/60 94
07/25/24 14:15 07/25/24 15:30 07/25/24 15:30 07/25/24 15:30 07/25/24 15:30
Lab Data
07/25/24 13:20
07/25/24 13:20
Laboratory Results
07/25/24 07/25/24
06:36 13:20
PT 12.6 13.6
INR 0.89 0.99
APTT 21.7 L 20.6 L
Microbiology
07/20/24 15:28 Feces/Stool Salmonella/Shigella Culture - Final
No Salmonella, Shigella, Aeromonas or Plesiomonas species
isolated.
07/20/24 15:28 Feces/Stool Campylobacter Culture - Final
No Campylobacter species isolated.
07/20/24 15:28 Feces/Stool Shiga Toxin Test - Final
No E. coli Shiga Toxin 1 or 2 detected.
Diagnostic Testing:
Physical Exam
-
HEENT: Anicteric and Other (left anterior neck incision without active bleed )
Cardiovascular: S1/S2 and Peripheral Edema (negative)
Respiratory: Clear, Wheeze (negative), Rales (negative), Rhonchi (negative) and Non-Labored Respirations
GI: Soft, Non Distended, Non Tender and Normal Bowel Sounds
Neurology: AO x 3 and Tremors (negative)
Skin: Warm and Dry
General: Respiratory Distress (negative), Comfortable, Chills (negative) and Sweats (negative)
Assessment
-
Assessment: 78-year-old female with a past medical history of hypertension, PE/DVT and hiatal hernia who presented with right lower extremity weakness as well as expressive aphasia. Neurology was consulted as well as cardiology and vascular
surgery. There was concern for left hemispheric TIA and vascular surgery recommended revascularization due to risk of CVA. Today, she underwent a left carotid endarterectomy with bovine pericardial patch angioplasty and was transferred to the ICU
for postoperative monitoring. Opera Singer services consulted for additional management/recommendations.
Impression:
#Carotid stenosis s/p left carotid endarterectomy with bovine pericardial patch angioplasty and EEG monitoring (POD #0)
#TIA
#Chronic transaminitis
#Valvular heart disease
#History of DVT/PE
#Anxiety
Plan:
Postoperative surgical intensive care unit monitoring
Supplemental oxygen as needed to maintain SpO2 >90-94%
prn nebulized bronchodilators - not currenetly bronchospastic
Incentive spirometry encouraged 10x per hour for at least 4 hrs a day
Aspiration precautions
Pain control
Neuro and vascular checks per protocol
Maintain MAP>65
Replete electrolytes with K>4, Mg>2
Maintain euglycemia with goal BG 140-180
Continue ASA and high intensity statin
Vascular surgery following-correspondence and operative notes reviewed
Transfuse blood products as needed to keep Hb>7g/dL, and plt>50k (given post-operative status)
DVT prophylaxis: LMWH
Early nutrition
Early mobilization
Critical care statement: A total of 44 minutes of critical care time was provided for this patient today. This includes management of unstable vital signs, evaluation of the patient at bedside, reviewing the patient's pertinent medical records
including radiographs, microbiology, laboratory evaluations, and discussion with primary team, consultants, pharmacy, nutrition, physical therapy, case management, charge nurse, critical care nursing, and respiratory therapy.
--- NOTE | 2024-07-25 16:15 | W.PN.CARDCBS ---
Addendum entered and electronically signed by Bari Sheffield MD 07/25/24 16:46:
I saw and examined the patient.
The Operating Room Manager's note was reviewed and I agree with the note.
Comment: Briefly, 78-year-old woman with history of mild valvular heart disease and DVT/PE on Xarelto who presented with word finding difficulties and leg weakness concerning for TIA. Patient was found to have carotid stenosis by CTA of the neck
and underwent carotid endarterectomy earlier today with vascular surgery. At the time of my evaluation she was resting comfortably in bed in the medical ICU where she was recovering.
Agree with aspirin and high intensity statin for management of carotid stenosis and TIA
Stable cardiac status, we will sign off, please recall as needed
Outpatient follow-up has been arranged
Original Note:
Today's Communication / Plan
-
Cardene running at 2.5
Received dose of Lopressor 12.5 mg BID this morning
Xarelto is for h/o DVT/PE
Cardiology f/u arranged
Impression / Plan
-
PCP: Aixa ROLLINS
Card: Dr. Stanford, last seen 09/2022
Impression:
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
Left hemispheric TIA
B/L carotid stenosis
s/p left CEA 07/25/24
Mild to moderate aortic regurgitation
Mild mitral regurgitation
Hypercholesterolemia
Type 2 diabetes
Anxiety/depression
h/o DVT and PE
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
Hyperparathyroidism
History of hepatitis B
Migraines
Echo 07/23/2024: EF 60 to 65%, mild MR, mild aortic regurgitation
Plan:
-Cardene running at 2.5 mg/hr post-op
-Lopressor 12.5 mg BID given 07/25/24 AM. Outpatient dose of propranolol 20 mg BID was changed to Lopressor this admission
-Outpatient dose of Xarelto 10 mg daily for h/o DVT/PE remains on hold.
-Patient does not have a documented h/o atrial arrhythmia
-Outpatient dose of atorvastatin was increased to 80 mg daily
-Patient is scheduled to see Dr. Stanford in the office on 08/07/2024 at 11:20 and prior to that was last seen in 2022.
Progress Note - Benefit Specialist
Subjective
Date of Service: July 25, 2024
No pain
Objective
Labs:
07/25/24 13:20
07/25/24 13:20
Labs
Hgb 12.3 g/dL (12.0-16.0) 07/25/24 13:20
Hct 37.4 % (37.0-47.0) 07/25/24 13:20
Plt Count 246 10^3/uL (130-400) 07/25/24 13:20
PT 13.6 Sec (11.4-14.6) 07/25/24 13:20
INR 0.99 07/25/24 13:20
APTT 20.6 Sec (23.4-35.0) L 07/25/24 13:20
Sodium 136 mmol/L (135-145) 07/25/24 13:20
Potassium 4.1 mmol/L (3.5-5.1) 07/25/24 13:20
BUN 12 mg/dl (7-17) 07/25/24 13:20
Creatinine 0.5 mg/dL (0.6-1.0) L 07/25/24 13:20
Glucose 210 mg/dl (70-99) H 07/25/24 13:20
Vital Signs and I&O:
Vital Signs
Temp Pulse Resp BP Pulse Ox
97.9 F 88 17 119/60 94
07/25/24 14:15 07/25/24 15:30 07/25/24 15:30 07/25/24 15:30 07/25/24 15:30
Vital Signs
Temp Pulse Resp BP Pulse Ox
97.9 F 88 17 119/60 94
07/25/24 14:15 07/25/24 15:30 07/25/24 15:30 07/25/24 15:30 07/25/24 15:30
Intake & Output
07/23/24 07/24/24 07/25/24 07/26/24
06:59 06:59 06:59 06:59
Intake Total 840 / 840 120 / 120 222.5 / 222.5
Balance 840 / 840 120 / 120 222.5 / 222.5
Physical Exam
Physical Exam
GEN: AAOx3
HEENT: EOMI
LUNGS: RA
CV: SR on tele
[2024-07-25] MEDS: NOVOLOG FLEXPEN-LOW RESISTANCE 2 UNITS SC (17:10)
[2024-07-25 17:11] LABS: Glucose - Point of Care 242 mg/dl (70-99)
--- NOTE | 2024-07-25 18:00 | PTCARENOTE ---
Pt has been resting quietly, napping for intervals since Oxycodone given for c/o Lt neck pain. Easily arousable to name. Neuro unchanged. Tolerated dinner tray w/o complications. Cardene gtt remains at 2.5mg/hr. No change in appearance to Lt neck
incision. Dtr now gone home for evening. Call barbara w/in pt reach, bed exit alarm in use.
[2024-07-25] MEDS: LOVENOX 40 MG SC (18:20)
--- NOTE | 2024-07-25 19:30 | PTCARENOTE ---
Resumed care of pt this evening. Received pt on cardene gtt infusing @ 2.5mg/hr via left peripheral IV site. NIHSS 0. Neurological checks unchanged from previous shift. Left carotid surgical site approximated, closed w/ surgical glue, and CUSTOMER CONTACT SPECIALIST.
[2024-07-25] MEDS: FEOSOL 325 MG PO (21:18)
[2024-07-25] MEDS: ELAVIL 10 MG PO (21:18)
[2024-07-25 21:49] LABS: Glucose - Point of Care 287 mg/dl (70-99)
[2024-07-25] MEDS: NOVOLOG FLEXPEN 4 UNITS SC (22:10)
[2024-07-26] VITALS (21 sets, daily range): BP systolic 110–142; BP diastolic 56–87; PULSE 92; O2SAT 93; BMI 28.9
--- NOTE | 2024-07-26 | PTCARENOTE ---
Upon reassessment, neurological checks remain unchanged. PRN dose of dilaudid administered by this RN for 8 out of 10 pain at left neck surgical site.
[2024-07-26] MEDS: CARDENE 200 IV (01:33)
[2024-07-26] MEDS: NSS 1000 IV (02:14)
[2024-07-26 05:28] LABS: % Basophils 0.2 % (0-2); % Lymphocytes 13.5 % (20.5-51.1); % Monocytes 6.8 % (1.7-9.3); % Neutrophils 78.5 % (42.2-75.2); Absolute Immature Granulocytes 0.1 10^3/uL (0-0.05); Absolute Lymphocytes 1.6 10^3/uL (1.2-3.4); Absolute Monocytes 0.8 10^3/uL (0.1-0.6); Absolute Neutrophils 9.5 10^3/uL (1.4-6.5); Hematocrit 37.4 % (37.0-47.0); Hemoglobin 12.4 g/dL (12.0-16.0); Mean Corp Hgb Conc. 33.2 g/dL (33.0-37.0); Mean Corpuscular Hgb 28.4 pg (27.0-31.0); Mean Corpuscular Volume 85.6 fL (81.0-99.0); Mean Platelet Volume 10.8 fL (7.4-10.4); Nucleated Red Blood Cells % 0 %; Platelet Count 272 10^3/uL (130-400); Red Blood Cell Count 4.37 10^6/uL (4.20-5.40); Red Cell Dist. Width 15.6 % (11.5-14.5); White Blood Cell Count 12.1 10^3/uL (4.8-10.8)
[2024-07-26 05:36] LABS: APTT 21.9 Sec (23.4-35.0); PT 12.7 Sec (11.4-14.6)
[2024-07-26 05:54] LABS: ALT (SGPT) 112 U/L (0-35); AST (SGOT) 65 U/L (14-36); Albumin 4.5 g/dl (3.5-5.0); Alkaline Phosphatase 67 U/L (38-126); Blood Urea Nitrogen 12 mg/dl (7-17); Calcium 9.3 mg/dl (8.4-10.2); Carbon Dioxide 22 mmol/L (22-30); Chloride 105 mmol/L (98-107); Estimated Creatinine Clearance 73 ml/min; Glucose 214 mg/dl (70-99); Potassium 4.7 mmol/L (3.5-5.1); Sodium 137 mmol/L (135-145); Total Bilirubin 0.4 mg/dl (0.2-1.3); Total Protein 6.8 g/dl (6.3-8.2); eGFR > 60.00
--- NOTE | 2024-07-26 07:30 | W.PN.VS ---
Addendum entered and electronically signed by Marcos Sahu MD 07/26/24 09:05:
Seen and examined with MICHELLE Rosales. Agree with findings as noted below. Patient without significant complaints. Left neck incision is clean dry and intact. No hematoma. Neurologically no focal deficits, moves all extremities well, tongue midline.
Plan/as discussed and noted below. Discussed also with hospitalist, okay to resume oral anticoagulation starting tomorrow (48 hours postoperatively).
Original Note:
Today's Communication / Plan
-
Seen and assessed with Dr. Sahu
Assessment/Plan
-
Postop day 1 left CEA
- DC A-line
�DC IV fluids
�Wean off Cardene
�Out of bed/ambulate
�Oral medications
�Likely okay for discharge/downgrade later today from vascular standpoint
Subjective Data
-
Date of Service: July 26, 2024
Patient seen at bedside this a.m. with Dr. Sauh. Patient offers no complaints at this time. No events overnight. On 2.5 with Cardene IV
Objective Data
-
Vital Signs
Temp Pulse Resp BP Pulse Ox
98.1 F 92 13 124/64 95
07/26/24 03:30 07/26/24 06:45 07/26/24 06:45 07/26/24 06:00 07/26/24 06:45
Intake and Output
07/25/24 07/26/24 07/27/24
06:59 06:59 06:59
Intake Total 120 / 120 1877.5 / 1877.5
Output Total 1550 / 1550
Balance 120 / 120 327.5 / 327.5
Intake:
Oral fluids 120 / 120 390 / 390
IV fluids (Total) 1487.5 / 1487.5
Cardene 187.5 / 187.5
NSS 1300 / 1300
Output:
Urine, Voided 1550 / 1550
Other:
Number of approximated MODERATE 2
amounts of urine
Number of approximated LARGE 1
amounts of urine
Lab Results
07/26/24 05:04
07/26/24 05:04
Calcium 9.3 mg/dl (8.4-10.2) 07/26/24 05:04
Total Bilirubin 0.4 mg/dl (0.2-1.3) 07/26/24 05:04
AST 65 U/L (14-36) H 07/26/24 05:04
ALT 112 U/L (0-35) H 07/26/24 05:04
Alkaline Phosphatase 67 U/L (38-126) 07/26/24 05:04
Total Protein 6.8 g/dl (6.3-8.2) 07/26/24 05:04
Albumin 4.5 g/dl (3.5-5.0) 07/26/24 05:04
Physical Exam
-
AAO x 3
No tachypnea
No tachycardia
Neck site clean, dry, intact, soft, flat
Abdomen soft
Moves all extremities to command
Tongue midline
[2024-07-26 08:04] LABS: Glucose - Point of Care 197 mg/dl (70-99)
--- NOTE | 2024-07-26 08:07 | W.PN.INTV ---
Today's Communication / Plan
Recommendations
Pain control
Up OOB as tolerated
ASA + high intensity statin
Encourage incentive spirometer
DVT prophylaxis
PT/OT
Diet as per FORENSIC COMPUTER EXAMINER
Resume Xarelto as per vascular surgery
Remove A-line and then patient can be downgraded to telemetry. No additional recommendations at this time. Flamer Sealer/Pulmonary service will now sign off. Please reconsult if there are any additional questions/concerns, or if patient's respiratory
status deteriorates.
Assessment
-
Assessment: 78-year-old female with a past medical history of hypertension, PE/DVT and hiatal hernia who presented with right lower extremity weakness as well as expressive aphasia. Neurology was consulted as well as cardiology and vascular
surgery. There was concern for left hemispheric TIA and vascular surgery recommended revascularization due to risk of CVA. Today, she underwent a left carotid endarterectomy with bovine pericardial patch angioplasty and was transferred to the ICU
for postoperative monitoring. Flamer Sealer services consulted for additional management/recommendations.
Impression:
#Carotid stenosis s/p left carotid endarterectomy with bovine pericardial patch angioplasty and EEG monitoring (POD #1)
#TIA
#Chronic transaminitis
#Valvular heart disease
#History of DVT/PE
#Anxiety
Plan:
Postoperative surgical intensive care unit monitoring
Supplemental oxygen as needed to maintain SpO2 >90-94%
prn nebulized bronchodilators - not currenetly bronchospastic
Incentive spirometry encouraged 10x per hour for at least 4 hrs a day
Aspiration precautions
Pain control
Neuro and vascular checks per protocol
Maintain MAP>65
Replete electrolytes with K>4, Mg>2
Maintain euglycemia with goal BG 140-180
Continue ASA and high intensity statin
Defer starting a fibrate to the hospitalist team given her triglycerides are 450
Vascular surgery following-correspondence and operative notes reviewed
Transfuse blood products as needed to keep Hb>7g/dL, and plt>50k (given post-operative status)
DVT prophylaxis: LMWH
Early nutrition
Early mobilization
Patient stable for downgrade out of ICU to telemetry. No additional recommendations at this time. Flamer Sealer/Pulmonary service will now sign off. Thank you for allowing us to be involved in the care of this patient. Please reconsult if there
are any additional questions/concerns, or if patient's respiratory status deteriorates.
Total time spent today was 58 minutes for this encounter. Time includes reviewing laboratory test/imaging results, reviewing pertinent medical records, obtaining and reviewing medical history, performing an appropriate exam, ordering medications,
tests and procedures. Time also includes documentation of this encounter, coordinating patient care and communicating with other healthcare professionals. Total time does not include separately billed tests performed on this date of service.
Subjective Dataa
Subjective Data
Date of Service:
Date of Service: July 26, 2024
Chief Complaint: Flamer Sealer Follow Up
Subjective:
Patient was seen and evaluated this morning. Currently saturating 93% on room air, BP 123/62 and heart rate 98. Cardene drip has been off since 9:30 AM today. She feels well, denying cough, chest pain, nausea, fevers or chills. Has episodes of
forgetfulness.
Review of Systems
General: Other (Negative unless mentioned above)
Objective Data
Data Reviewed
Vital Signs / I&O / Oxygen:
Vital Signs
Temp Pulse Resp BP Pulse Ox
98.7 F 95 17 110/66 94
07/26/24 07:00 07/26/24 10:00 07/26/24 10:00 07/26/24 10:00 07/26/24 10:00
Intake and Output
07/25/24 07/26/24 07/27/24
06:59 06:59 06:59
Intake Total 120 / 120 1877.5 / 1970.0 877.5 / 877.5
Output Total 1550 / 1550 300 / 300
Balance 120 / 120 327.5 / 420.0 577.5 / 577.5
SaO2 94
Nasal Cannula flow liters per 2
minute
Physical Exam
General: Respiratory Distress (negative), Comfortable, Chills (negative) and Sweats (negative)
HEENT: Normocephalic and Anicteric
Cardiovascular: S1-S2 and Peripheral Edema (negative)
Respiratory: Clear, Wheeze (negative), Crackles (negative), Rhonchi (negative) and Non-Labored Respirations
GI: Soft, Non Distended, Non Tender and Normal Bowel Sounds
Neurology: Awake, Alert and Tremors (negative)
Skin: Warm, Dry, Cyanosis (negative) and Jaundice (negative)
Labs/Micro/Reports
Lab Data
07/26/24 05:04
07/26/24 05:04
Laboratory Results
07/25/24 07/26/24
13:20 05:04
PT 13.6 12.7
INR 0.99 0.90
APTT 20.6 L 21.9 L
Microbiology
07/20/24 15:28 Feces/Stool Salmonella/Shigella Culture - Final
No Salmonella, Shigella, Aeromonas or Plesiomonas species
isolated.
07/20/24 15:28 Feces/Stool Campylobacter Culture - Final
No Campylobacter species isolated.
07/20/24 15:28 Feces/Stool Shiga Toxin Test - Final
No E. coli Shiga Toxin 1 or 2 detected.
[2024-07-26] MEDS: ROXICODONE 5 MG PO (08:48)
[2024-07-26] MEDS: VITAMIN C 500 MG PO (08:51)
[2024-07-26] MEDS: VITAMIN D3 (cholecalciferol) 25 MCG PO (08:51)
[2024-07-26] MEDS: ROBINUL 1 MG PO (08:51)
[2024-07-26] MEDS: KLONOPIN 0.25 MG PO ×3 (08:52→23:56)
[2024-07-26] MEDS: LIPITOR 80 MG PO (08:52)
[2024-07-26] MEDS: MIRALAX 17 GRAMS PO (08:52)
[2024-07-26] MEDS: PROTONIX 40 MG PO (08:52)
[2024-07-26] MEDS: LEXAPRO 10 MG PO (08:52)
[2024-07-26] MEDS: LOW STRENGTH ASPIRIN 81 MG PO (08:52)
--- NOTE | 2024-07-26 09:00 | PTCARENOTE ---
Rec'd pt at 0700 awake resting in bed. Stoke/Neuro check completed with offgoing RN. Currently NIH Is a O. Pt is alert. Overall is person, place time and general conversation is appropriate but pt does tend to get very forgetful. Did not remember
that Dr. Sahu was in to see her this morning and then thought it was Dr. Zepeda that was supposed to see her. NIH is a 0. Speech is clear. Smile is even. Tongue protudes midline. FAM at 3 mm. Denies dizziness or headache. SANTANA equally and denies
numbness. Admits to 6-7/10 L neck tenderness. Medicated at 0848 with Roxicodone 5 mg po. L neck incision is approximated with surgical glue -site wnl. No drainage. Ice to neck incision for 20 min. Skin otherwise is pink wm and dry. Respirs are
unlabored- Was on 2L but changed over to RA at 0730 and sats are 93-94%. BS are clear. Monitor SR. + pulses. Tr R LE edema and +1L LE edema. Denies chest pain. VS as documented. Pt with L radial A line- zeroed and recalibrated- runs anywhere from
10-20 mm/hg higher than cuff BP. Waveform as documented. Will give AM meds and then DC per MD order. Abd is soft with + BS. Denies nausea. Incont of a large amt of urine at change of shift and just used the bedpan for an additional 300 mls of yellow
urine. IV NSS was infusing at 80 ml/hr via R arm IV site (L arm int had some leaking) currently NSS dc'd per md order. Rec'd pt on IV Cardene at 2.5 mg will dc gtt once am meds given. Jennie Sahu and Tai in and updated. Complete CHG bath given.
Turned and repositioned. Assists with turning. Daughter at bedside. Plan of care reviewed with pt and daughter. Call jimenez in reach. Awaiting breakfast
[2024-07-26] MEDS: LOPRESSOR 12.5 MG PO ×2 (09:09→21:02)
--- NOTE | 2024-07-26 09:20 | PTCARENOTE ---
Porter pinzon dc'd per md order.
--- NOTE | 2024-07-26 09:24 | W.PN.HOSP.TC ---
Today's Communication/Plan
-
recovering well
watch BP
plan to restart Xarelto tomorrow as per vasc Sx
transfer to tele after arterial line removal
PT/OT and MANAGER OF DISASTER RECOVERY
possible d/c in AM
Assessment / Plan
Assessment / Plan
78yo F with PMHX of carotid stenosis, HLD, anxiety, DM, VTE on Xarelto came with transient RLL weakness and numbness, admitted for TIA/CVA. Telemetry without clinically significant arrhythmia, CTA showed b/l carotid stenosis 50-69% with progression
on R. Neurologist advised VascularSx eval and patient agreed for CEA. VascSx did CEA L with bovine patch on 07/25/24
A/P:
#TIA
MRI brain without CVA
Telemetry without clinically significant arrhythmia
LDL 127
HgbA1c 7.6%
Neurologist followed
ASA, statin
#B/L carotid stenosis worsened on R
VascSx did CEA L with bovine patch on 07/25/24
#Chronic recurrent mild transaminitis with fatty liver disease on CT in 2022
#HX of HepB
outpatient follow up with PCP
cont statin
follow LFT
#Mild MR
#Moderate AR
cardiology folowed, provided risk assessment before possible CEA
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
Outpatient MRI
#Empty sella
no signs of hypopituitarism
#HX of VTE
holding Xarelto while preparing for CEA, restart afterwards when agreed with VascSx
#DM type 2 with unspecified complications
DM diet, Insulin SS, Accuchecks, hold metformin
#Anxiety D/O
#EssentiaL HTN
#Hyperparathyroidism
#DEEP
cont home meds
#Mild postOP leukocytosis
reactive
follow
DVT ppx Lovenox
Full code
I have spent at least 55min reviewing chart, test results, communication with consultants, family and providing direct patient care
Anticipated Discharge: Within 24 hours
Subjective/Interval History
-
Date of Service: July 26, 2024
Objective Data
-
Labs:
Laboratory Results
07/26/24
05:04
WBC 12.1 H
Hgb 12.4
Hct 37.4
Plt Count 272
PT 12.7
INR 0.90
APTT 21.9 L
Sodium 137
Potassium 4.7
Chloride 105
Carbon Dioxide 22
BUN 12
Creatinine 0.5 L
Glucose 214 H
Calcium 9.3
Total Bilirubin 0.4
AST 65 H
ALT 112 H
Alkaline Phosphatase 67
Vital Signs:
Vital Signs
Temp Pulse Resp BP Pulse Ox
98.7 F 92 17 159/74 95
07/26/24 07:00 07/26/24 09:09 07/26/24 09:02 07/26/24 09:09 07/26/24 09:02
I&O
07/25/24 07/26/24 07/27/24
06:59 06:59 06:59
Intake Total 120 / 120 1877.5 / 1970.0 577.5 / 577.5
Output Total 1550 / 1550 300 / 300
Balance 120 / 120 327.5 / 420.0 277.5 / 277.5
Review of Systems
-
History Source: Patient
All other systems: Reviewed and negative
Physical Exam
-
General: No Apparent Distress
HEENT: Other (scar without hematoma on L neck)
Respiratory: Clear to Auscultation
Cardiac: Regular Rhythm
GI: Soft, Nontender and Nondistended
Musculoskeletal: No Clubbing, No Cyanosis and No Edema
Neuro: Awake, Alert, Oriented and AO x 3
Psych: Calm
[2024-07-26] MEDS: NOVOLOG FLEXPEN-LOW RESISTANCE 1 UNITS SC (09:42)
--- NOTE | 2024-07-26 10:40 | PTCARENOTE ---
Good appetite for breakfast. No c/o nausea. A line dc'd per MD order. Capped int dc'd L forearm as it was leaking when flushed. Will get pt oob shortly. Neuro assessment is unchanged
--- NOTE | 2024-07-26 11:30 | PTCARENOTE ---
States earlier Roxicodone decreased the neck pain to about a 2-3. Assisted with assist of 1 oob to the BSC then to the chair. Able to easily bear wt but gait is sl unsteady. Voided yellow urine on the commode. L wrist A line site wnl. Dressing is
D+I. No swellling noted. Neuro assessment is unchanged otherwise. Overall is oriented and appropriate with conversation but is definitely very forgetful. L neck incision is unchanged. . VS as documented. Pt did own oral care. Call jimenez in reach.
[2024-07-26 12:16] LABS: Glucose - Point of Care 222 mg/dl (70-99)
[2024-07-26] MEDS: GLUCOPHAGE 500 MG PO (13:15)
[2024-07-26] MEDS: NOVOLOG FLEXPEN-MODERATE RESISTANCE 3 UNITS SC (13:40)
--- NOTE | 2024-07-26 13:53 | PTCARENOTE ---
Eating lunch. No changes in asssessment. Does have an intermittent hand tremor that she said she gets at baseline off and on. VS as documented. Dr. Lujan updated. Call jimenez in reach
--- NOTE | 2024-07-26 14:35 | PTCARENOTE ---
Assisted back to bed after using the commode. Admits to feeling tired. No other changes.
--- NOTE | 2024-07-26 15:02 | CM ---
Discharge Plan of Care: Home with VN, PT/OT services [facility].
[2024-07-26] MEDS: DULCOLAX 10 MG RECTAL (16:41)
--- NOTE | 2024-07-26 17:00 | PTCARENOTE ---
Assessment is unchanged. Neuro assessment is unchanged. Still is overall oriented but again very forgetful and needs frequent reminders. No c/o dizziness or headache. Smile is even. SANTANA. Respires are unlabored. At times when she is dozing she
desats to 90% but when awake back up to 94-95%. VS as documented. Voiding yellow urine. Has not been able to have a BM although feels as if she needs to. Had 2 very small formed amts of stool. Requested something else for her bowels. Given a
Dulcolax suppository. Currently back oob in the chair after using the commode. Gait remains sl unsteady but easily able to bear wt. Call jimenez in reach .
[2024-07-26 17:27] LABS: Glucose - Point of Care 181 mg/dl (70-99)
[2024-07-26] MEDS: NOVOLOG FLEXPEN-MODERATE RESISTANCE 1 UNITS SC (17:27)
--- NOTE | 2024-07-26 18:19 | PTCARENOTE ---
Excellent appetite for dinner. No c/o nausea. Voided but no stool currently. Report called to 2 [facility] transfer pt via wheelchair. No other changes.
[2024-07-26] MEDS: LOVENOX 40 MG SC (18:29)
[2024-07-26] MEDS: ELAVIL 10 MG PO (21:03)
[2024-07-26] MEDS: FEOSOL 325 MG PO (21:03)
[2024-07-26 21:32] LABS: Glucose - Point of Care 197 mg/dl (70-99)
[2024-07-27 03:03] VITALS: BP 142/80
[2024-07-27 07:26] LABS: Hemoglobin 12.6 g/dL (12.0-16.0); Mean Corp Hgb Conc. 32.3 g/dL (33.0-37.0); Mean Corpuscular Hgb 28.4 pg (27.0-31.0); Mean Corpuscular Volume 87.8 fL (81.0-99.0); Mean Platelet Volume 11.5 fL (7.4-10.4); Platelet Count 277 10^3/uL (130-400); Red Blood Cell Count 4.44 10^6/uL (4.20-5.40); Red Cell Dist. Width 16.3 % (11.5-14.5); White Blood Cell Count 13.9 10^3/uL (4.8-10.8)
[2024-07-27 07:30] VITALS: BP 98/83
[2024-07-27 07:37] LABS: ALT (SGPT) 96 U/L (0-35); AST (SGOT) 44 U/L (14-36); Albumin 4.6 g/dl (3.5-5.0); Alkaline Phosphatase 72 U/L (38-126); Blood Urea Nitrogen 19 mg/dl (7-17); Calcium 9.7 mg/dl (8.4-10.2); Carbon Dioxide 27 mmol/L (22-30); Chloride 104 mmol/L (98-107); Estimated Creatinine Clearance 63 ml/min; Glucose 158 mg/dl (70-99); Potassium 4.8 mmol/L (3.5-5.1); Sodium 141 mmol/L (135-145); Total Bilirubin 0.4 mg/dl (0.2-1.3); Total Protein 7.3 g/dl (6.3-8.2); eGFR > 60.00
[2024-07-27 07:41] LABS: Glucose - Point of Care 160 mg/dl (70-99)
[2024-07-27 08:46] LABS: % Basophils 0.6 % (0-2); % Eosinophils 0.7 % (0-6); % Immature Granulocytes 0.9 % (0-0.5); % Lymphocytes 33.6 % (20.5-51.1); % Monocytes 7.3 % (1.7-9.3); % Neutrophils 56.9 % (42.2-75.2); Absolute Basophils 0.1 10^3/uL (0-0.2); Absolute Eosinophils 0.1 10^3/uL (0-0.7); Absolute Immature Granulocytes 0.1 10^3/uL (0-0.05); Absolute Lymphocytes 4.7 10^3/uL (1.2-3.4); Absolute Neutrophils 7.9 10^3/uL (1.4-6.5); Nucleated Red Blood Cells % 0 %
[2024-07-27] MEDS: NOVOLOG FLEXPEN-MODERATE RESISTANCE 1 UNITS SC (09:04)
[2024-07-27] MEDS: LOW STRENGTH ASPIRIN 81 MG PO (09:04)
[2024-07-27] MEDS: LIPITOR 80 MG PO (09:04)
[2024-07-27] MEDS: PROTONIX 40 MG PO (09:04)
[2024-07-27] MEDS: ROBINUL 1 MG PO (09:05)
[2024-07-27] MEDS: VITAMIN C 500 MG PO (09:05)
[2024-07-27] MEDS: LOPRESSOR 12.5 MG PO (09:05)
[2024-07-27] MEDS: VITAMIN D3 (cholecalciferol) 25 MCG PO (09:08)
[2024-07-27] MEDS: LEXAPRO 10 MG PO (09:08)
[2024-07-27] MEDS: KLONOPIN 0.25 MG PO (09:08)
[2024-07-27] MEDS: MIRALAX 17 GRAMS PO (10:48)
[2024-07-27 11:17] VITALS: BP 146/86
--- NOTE | 2024-07-27 11:35 | W.PN.HOSP.TC ---
Today's Communication/Plan
-
DC
Assessment / Plan
Assessment / Plan
78yo F with PMHX of carotid stenosis, HLD, anxiety, DM, VTE on Xarelto came with transient RLL weakness and numbness, admitted for TIA/CVA. Telemetry without clinically significant arrhythmia, CTA showed b/l carotid stenosis 50-69% with progression
on R. Neurologist advised VascularSx eval and patient agreed for CEA. VascSx did CEA L with bovine patch on 07/25/24. Has uneventful recovery. VascSx was ok with d/c. Mild leukocytosis without fevers, urinary, respiratory or GI symptoms with well
healing and non-inflamed. No left shift on CBC. probably postOP reactive changes. Had lengthy discussion with daughter bedside and she is in agreement to monitor at home. medcially stable fo d/c home as per PT/OT.
A/P:
#TIA
MRI brain without CVA
Telemetry without clinically significant arrhythmia
LDL 127
HgbA1c 7.6%
Neurologist followed
ASA, statin
#B/L carotid stenosis worsened on R
VascSx did CEA L with bovine patch on 07/25/24
#Chronic recurrent mild transaminitis with fatty liver disease on CT in 2022
#HX of HepB
outpatient follow up with PCP
cont statin
follow LFT
#Mild MR
#Moderate AR
cardiology folowed, provided risk assessment before possible CEA
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
Outpatient MRI
#Empty sella
no signs of hypopituitarism
#HX of VTE
holding Xarelto while preparing for CEA, restart afterwards when agreed with VascSx
#DM type 2 with unspecified complications
DM diet, Insulin SS, Accuchecks, hold metformin
#Anxiety D/O
#EssentiaL HTN
#Hyperparathyroidism
#DEEP
cont home meds
#Mild postOP leukocytosis
reactive
follow
DVT ppx Lovenox
Full code
I have spent at least 55min reviewing chart, test results, communication with consultants, family and providing direct patient care
Anticipated Discharge: Today
Subjective/Interval History
-
Date of Service: July 27, 2024
Objective Data
-
Labs:
Laboratory Results
07/27/24
05:55
WBC 13.9 H
Hgb 12.6
Hct 39.0
Plt Count 277
Sodium 141
Potassium 4.8
Chloride 104
Carbon Dioxide 27
BUN 19 H
Creatinine 0.7
Glucose 158 H
Calcium 9.7
Total Bilirubin 0.4
AST 44 H
ALT 96 H
Alkaline Phosphatase 72
Vital Signs:
Vital Signs
Temp Pulse Resp BP Pulse Ox
97.7 F 88 20 146/86 94
07/27/24 11:17 07/27/24 11:17 07/27/24 11:17 07/27/24 11:17 07/27/24 11:17
I&O
07/26/24 07/27/24 07/28/24
06:59 06:59 06:59
Intake Total 1877.5 / 1970.0 / 2006.
Output Total 1550 / 1550 1000 / 1000
Balance 327.5 / 420.0 1007.5 / 1007.5
Review of Systems
-
History Source: Patient
All other systems: Reviewed and negative
Neuro: Reports Other (mild numbness of the skin upon L check and lower ear, not contiguous - most likely postOP since no other signs of neurological deficit)
Physical Exam
-
General: No Apparent Distress
HEENT: Normocephalic
Respiratory: Clear to Auscultation
Cardiac: Regular Rhythm
GI: Soft
Neuro: Awake, Alert, Oriented and AO x 3
Psych: Calm
--- NOTE | 2024-07-27 11:48 | W.DCSUMMARY ---
Discharge Summary
Discharge Data
Date of Admission: 07/23/24
Date of Discharge: 07/27/24
-
Pending Results: No
Hospital Course
78yo F with PMHX of carotid stenosis, HLD, anxiety, DM, VTE on Xarelto came with transient RLL weakness and numbness, admitted for TIA/CVA. Telemetry without clinically significant arrhythmia, CTA showed b/l carotid stenosis 50-69% with progression
on R. Neurologist advised VascularSx eval and patient agreed for CEA. VascSx did CEA L with bovine patch on 07/25/24. Has uneventful recovery. VascSx was ok with d/c. Mild leukocytosis without fevers, urinary, respiratory or GI symptoms with well
healing and non-inflamed. No left shift on CBC. probably postOP reactive changes. Had lengthy discussion with daughter bedside and she is in agreement to monitor at home. medically stable fo d/c home as per PT/OT.
I have spent at least 55min reviewing chart, test results, communication with consultants, family and providing direct patient care
patient was managed for:
#TIA
#B/L carotid stenosis worsened on R
#Chronic recurrent mild transaminitis with fatty liver disease on CT in 2022
#HX of HepB
#Mild MR
#Moderate AR
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
#Empty sella
#HX of VTE
#DM type 2 with unspecified complications
#Anxiety D/O
#Essential HTN
#Hyperparathyroidism
#DEEP
#Mild postOP leukocytosis
Discharge Plan
-
Patient Disposition: Home (Routine Discharge)
Discharge Diagnosis/Procedures: Left carotid endarterectomy
Activity: No strenuous activity
Driving Restrictions: Not until seen by your Dr
Bathing Restrictions: OK to Shower
Stand Alone Forms: Vascular Surg Discharge Instr
Referrals:
Dar Stanford MD [Active] - 08/07/24 11:20 am (You have an appt to see Dr. Stanford at the [place] office on 08/07/24 at 11:20 AM. Please call [phone] if you need to reschedule.)
Aixa Bernard PA-C [Family Provider] - in less than 1 week (C3-C4, C4-C5 central canal stenosis and cord compression, schedule MRI cervical spine)
Kerri Canales CRNP [Specified Professional Personl] - 08/10/24 1:00 pm (Vascular surgery office follow-up)
Prescriptions:
New
atorvastatin 80 mg Tablet
80 mg PO DAILY Qty: 30 0RF
aspirin 81 mg Tablet,Chewable
81 mg PO DAILY Qty: 30 0RF
metoprolol tartrate 25 mg Tablet
12.5 mg PO BID Qty: 60 0RF
Continued
amitriptyline 10 MG tablet
10 mg PO HS
escitalopram oxalate 10 MG tablet
10 mg PO DAILY
clonazepam 0.5 MG tablet
0.25 mg PO HS
glucosamine lundberg 2KCl-chondroit 1 EACH tablet
1 ea PO HS
glycopyrrolate 1 mg Tablet
1 mg PO DAILY
omeprazole 20 mg Capsule,Delayed Release(Dr/Ec)
20 mg PO DAILY
cholecalciferol (vitamin D3) [Vitamin D3] 25 mcg (1,000 unit) Capsule
25 mcg PO DAILY
Xarelto 10 mg Tablet
10 mg PO DAILY
ferrous sulfate [Feosol] 325 MG tablet
325 mg PO HS
ascorbic acid (vitamin C) [Vitamin C] 500 mg Tablet
500 mg PO DAILY
metformin 500 mg Tablet
500 mg PO BID
clonazepam 0.5 mg Tablet
0.25 mg PO BID
Patient Comments:
Patient is very sensitive to any changes in this medication. She has had withdrawal in the past due to not taking as prescribed. [facility] confirmed 0.25mg TID.
Discontinued
propranolol 20 mg Tablet
20 mg PO BID
atorvastatin [Lipitor] 40 mg Tablet
40 mg PO DAILY
Discharge Orders:
Discharge Patient (As Directed); Ordered 07/27/24
Ordered By: Matt Chow
Discharge Date and Time
Print Language: LAO
--- NOTE | 2024-07-27 11:59 | CM ---
CM following re: discharge planning.
Reviewed pt's chart, met with pt. pt's daughter and pt's friend at bedside.
Discharge order noted. Both pt and her daughter are aware, expressed their agreement and daughter stated she will transport her mother home. IMM reviewed, placed on chart, pt has a copy.
PT and OT evaluations noted - home PT/OT recommended. Pt is aware and she stated she called outpatient therapy at [facility] and cancelled outpatient PT/OT services and she preferred [facility].
[facility] liaison following.
PT to issue a walker. A script for a walker given to PT.
Please fax discharge instructions to [facility] at [phone].
D/C plan: home with [facility] and family support. Daughter to transport.
[2024-07-27 12:00] LABS: Glucose - Point of Care 151 mg/dl (70-99)
[2024-07-27] MEDS: NOVOLOG FLEXPEN-MODERATE RESISTANCE SC (12:48)
[2024-07-27 14:42] VITALS: BP 133/69
== END 2024-07-27 14:47 | disposition home health service (06) | DRG 39 ==
LOC: 2 SOUTH 07:47
PROVIDERS: Nurse Practitioner; Nurse Practitioner Acute Care; Surgery Vascular Surgery; ADMITTING PHYSICIAN Hospitalist; ATTENDING PHYSICIAN Internal Medicine; CONSULT PHYSICIAN Internal Medicine Cardiovascular Disease; CONSULT PHYSICIAN Psychiatry & Neurology Neurology; EMERGENCY PHYSICIAN Student in an Organized Health Care Education/Training Program; FAMILY PHYSICIAN Physician Assistant Medical; OTHER PHYSICIAN Internal Medicine Critical Care Medicine; OTHER PHYSICIAN Surgery
PROC: 03UJ0KZ Supplement Left Common Carotid Artery with Nonautologous Tissue Substitute, Open Approach (ICD-10-PCS; 2024-07-25)
PROC: 03CJ0ZZ Extirpation of Matter from Left Common Carotid Artery, Open Approach (ICD-10-PCS; 2024-07-25)
DX: I65.23 Occlusion and stenosis of bilateral carotid arteries (principal); I10 Essential (primary) hypertension; E11.9 Type 2 diabetes mellitus without complications; F41.9 Anxiety disorder, unspecified; E21.3 Hyperparathyroidism, unspecified; K21.9 Gastro-esophageal reflux disease without esophagitis; E78.00 Pure hypercholesterolemia, unspecified; D72.829 Elevated white blood cell count, unspecified; G46.0 Middle cerebral artery syndrome; I70.0 Atherosclerosis of aorta; Z79.01 Long term (current) use of anticoagulants; Z79.82 Long term (current) use of aspirin; Z79.899 Other long term (current) drug therapy; Z86.711 Personal history of pulmonary embolism; Z86.718 Personal history of other venous thrombosis and embolism; Z60.2 Problems related to living alone
CPT/HCPCS: 88304; 88311; 0042T; 35301; 70450; 70496; 70498; 70551; 80048; 80053; 80061; 82962; 83036; 83721; 84484; 85025; 85027; 85610; 85730; 86850; 86900; 86901; 87045; 87046; 87324; 87427; 87449; 92523; 92610; 93005; 93306; 93880; 95938; 95941; 95955; 96374; 97116; 97129; 97163; 97166; 97530; 97535; 99285; Q9967

== ENCOUNTER → 2024-09-06 13:55 | Outpatient (REF) | payer MEDICARE, BC, SELFPAY ==
[2024-09-06 16:19] LABS: ALT (SGPT) 58 U/L (0-35); AST (SGOT) 36 U/L (14-36); Albumin 4.7 g/dl (3.5-5.0); Alkaline Phosphatase 66 U/L (38-126); Blood Urea Nitrogen 17 mg/dl (7-17); Calcium 9.6 mg/dl (8.4-10.2); Carbon Dioxide 25 mmol/L (22-30); Chloride 106 mmol/L (98-107); Glucose 108 mg/dl (70-99); HDL Cholesterol 39 mg/dl; LDL Cholesterol, Calculated 81 mg/dl; Potassium 4.4 mmol/L (3.5-5.1); Sodium 142 mmol/L (135-145); Total Bilirubin 0.6 mg/dl (0.2-1.3); Total Cholesterol 164 mg/dl (50-199); Total Protein 7.4 g/dl (6.3-8.2); Triglyceride 220 mg/dl (10-149); Very Low Density Lipoprotein 44 mg/dl (0-30); eGFR > 60.00
[2024-09-06 16:32] LABS: Microalbumin, Random Urine 3.3 mg/dl (0.6-1.7); Microalbumin/creatinine Ratio 15.7 mg/g
[2024-09-07 08:46] LABS: Glycohemoglobin (HgbA1c) 6.5 % (4.0-5.6)
== END ==
LOC: RAD 13:55
PROVIDERS: ATTENDING PHYSICIAN Registered Nurse; FAMILY PHYSICIAN Internal Medicine
DX: I65.22 Occlusion and stenosis of left carotid artery (principal); G45.9 Transient cerebral ischemic attack, unspecified; I65.23 Occlusion and stenosis of bilateral carotid arteries; Z98.890 Other specified postprocedural states; E11.65 Type 2 diabetes mellitus with hyperglycemia; E78.00 Pure hypercholesterolemia, unspecified; D68.69 Other thrombophilia; F01.B0 Vascular dementia, moderate, without behavioral disturbance, psychotic disturbance, mood disturbance, and anxiety
CPT/HCPCS: 36415; 80053; 80061; 82043; 82570; 83036; 93880

== ENCOUNTER 2024-10-15 22:20 | Emergency (ER) | payer MEDICARE, BC, SELFPAY ==
[2024-10-15 22:23] VITALS: BP 184/86
[2024-10-15 22:50] LABS: Hematocrit 41.9 % (37.0-47.0); Hemoglobin 14.0 g/dL (12.0-16.0); Mean Corp Hgb Conc. 33.4 g/dL (33.0-37.0); Mean Corpuscular Volume 83.3 fL (81.0-99.0); Nucleated Red Blood Cells % 0 %; Platelet Count 199 10^3/uL (130-400); Red Cell Dist. Width 13.4 % (11.5-14.5)
[2024-10-15 23:08] LABS: ALT (SGPT) 40 U/L (0-35); AST (SGOT) 28 U/L (14-36); Albumin 5.3 g/dl (3.5-5.0); Alkaline Phosphatase 67 U/L (38-126); Blood Urea Nitrogen 24 mg/dl (7-17); Calcium 10.0 mg/dl (8.4-10.2); Carbon Dioxide 19 mmol/L (22-30); Chloride 102 mmol/L (98-107); Glucose 122 mg/dl (70-99); Lipase 89 U/L (23-300); Potassium 3.9 mmol/L (3.5-5.1); Sodium 138 mmol/L (135-145); Total Protein 8.6 g/dl (6.3-8.2); eGFR > 60.00
[2024-10-15 23:35] LABS: Troponin I < 0.012 ng/ml
[2024-10-16 00:33] VITALS: BP 176/91
--- NOTE | 2024-10-16 01:47 | ED.GENMED ---
History of Present Illness
General
Chief Complaint: Abdominal Symptoms
Source: patient
Exam Limitations: none
Time Seen by Provider: 10/16/24 01:13
Nursing documentation reviewed up to this point in time: agreed with
History of Present Illness
History of Present Illness:
Note:
CHIEF COMPLAINT(S)
Numbness in hands and anxiety about a potential heart attack.
HISTORY OF PRESENT ILLNESS
The patient is a 78-year-old female with a past medical history of GERD, hyperlipidemia, diabetes, who presented with concerns of numbness in both hands, significant anxiety, and fear of a potential myocardial infarction. The patient reported that
these symptoms began in the evening during a [employer] game. She did not experience chest pain but felt nervous and was monitoring her blood pressure, which was elevated but has since normalized. The patient also felt nausea and she was reading that
this could be symptoms of a heart attack. The patient has a known history of anxiety and described her symptoms as potentially psychological. She denied any vomiting but experienced mild nausea after consuming an older refrigerated hamburger. She
reported not eating much due to the nausea and consumed a banana. There was some abdominal tenderness, though not significant, and she noted she had been having normal bowel movements without diarrhea or changes in stool color. Her numbness has
resolved. She denies any loss of consciousness or headache. She denies any double vision. She denies any weakness in one-sided body versus other.
PAST MEDICAL AND SURGICAL HISTORY
The patient has a history of a TIA in July. She reports having undergone a carotid surgery because her choice was not completely occluded, and this was performed around two months ago. She takes aspirin and metoprolol.
CHRONIC MEDICAL CONDITIONS SIGNIFICANTLY AFFECTING CARE
- History of stroke.
- Anxiety disorder.
- Hypertension, managed with metoprolol and low-dose aspirin.
MEDICATIONS
- Aspirin (dosage not specified).
- Metoprolol (50 mg, usually taken in the evening).
REVIEW OF SYSTEMS
- Cardiovascular: Numbness in hands; no chest pain reported.
- Gastrointestinal: Mild nausea without vomiting; abdominal tenderness; normal bowel movements, denies diarrhea or melena.
- Neurological: Numbness in both hands, resolved, history of anxiety.
PHYSICAL EXAM
Nursing notes reviewed and vital signs reviewed.
General: Patient is well appearing and in no acute distress; non-toxic
Skin: Warm and dry, no rashes or lesions
Head: Normocephalic, atraumatic
Eyes: Sclera non-icteric. EOMs intact.
Cardiac: Regular rate and rhythm, no murmurs
Pulm: Normal respiratory effort, no wheezes, rales, rhonchi
Abdomen: Abdomen soft and nontender to palpation
Neuro: CN II-XII intact, no focal neurologic deficits.
Psychiatric: Appropriate mood and affect.
PROBLEM LIST
Acute Problems:
- Numbness in hands.
- Anxiety.
PLAN
- Repeat troponin levels to rule out myocardial infarction.
- Administer intravenous fluids to address mild dehydration.
- Administer pantoprazole to help alleviate stomach upset.
- Resume metoprolol at a lower dose given the uncertainty of the patients current regimen. She is requesting this medication as she did not take it tonight.
- Plan initially was to obtain an ultrasound of the abdomen to assess for possible biliary colic versus acute cholecystitis however patient has no right upper quadrant pain and is refusing ultrasound at this time. I think this is reasonable as her
LFTs are unremarkable, her total bilirubin is normal, she has no fever, and no pain
- Encourage monitoring of symptoms at home and return if they worsen.
DIFFERENTIAL DIAGNOSIS
The Differential Diagnosis includes, in no particular order and is not limited to:
1. Anxiety or panic attack.
2. Myocardial infarction (ruled out with normal troponin, pending repeat).
3. Gastroenteritis or food-related nausea.
4. Gallbladder disease.
5. Dehydration.
6. Stroke recurrence (less likely given resolved symptoms and even presentation of symptoms).
7. Side effects or incorrect dosing of metoprolol.
8. Electrolyte imbalance (likely from not eating well).
9. Viral upper GI symptoms.
10. Musculoskeletal or nerve compression-related numbness.
CHART REVIEW
Reviewed discharge summary from 07/27/2024 patient seen for TIA and carotid stenosis
MDM/DISPOSITION
The patient is a 78-year-old female with a past medical history of GERD, hyperlipidemia, diabetes, who presented with concerns of numbness in both hands, significant anxiety, and fear of a potential myocardial infarction. She also describes a
sensation of feeling nauseous and some indigestion after eating a hamburger. She denies chest pain. She states that most of her symptoms have resolved she has mild nausea. Physical exam she is well-appearing no acute distress. Her abdomen soft
and nontender. Her BUN is slightly elevated she is given IV fluids. Her blood work is otherwise unremarkable. Her initial troponin was undetectable. Her ECG shows normal sinus rhythm with occasional PACs. Her repeat troponin remains
undetectable. Patient is feeling well and is ready to go home. Did give dose of Protonix for possible GERD/reflux symptoms. Consider ultrasound but patient prefers to go home. 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
Past History
Past History
ED Past Medical History: GERD, Hypercholesterolemia, NIDDM, Psychiatric (anxiety), Other (Pulmonary Embolism. DVT) and Other (dvt)
ED Past Surgical History: Cholecystectomy, Gynecological (Hysterectomy) and Orthopedic (L total Knee replacement; right and left rotator cuff repairs)
Social History
Tobacco: Non-smoker
Alcohol: Occasional
Drug: None
Personal:
Living: assisted living
Employment: Other
Family History
Family History: Other
Phy Exam
Physical Exam
Physical Exam:
see hpi
Course
Orders/Labs/Results
Orders:
Orders
10/15/24 22:31
Electrocardiogram (*1) Urgent
Reason for Study: Fatigue / Weakness
EKG- Treatment ONCE
10/15/24 22:41
Complete Blood Count/With Diff Urgent
Comprehensive Metabolic Panel Urgent
Lipase Urgent
Troponin I Urgent
10/16/24 01:42
0.9% Sodium Chloride 500 ml [Nss] 500 ml IV BOLUS
10/16/24 01:43
Electrocardiogram (*1) Urgent
Reason for Study: Chest Pain
10/16/24 01:46
Pantoprazole [Protonix IV] 40 mg IV NOW STA
10/16/24 01:47
Prochlorperazine [Compazine] 5 mg IV NOW STA
10/16/24 02:03
Troponin I Urgent
10/16/24 02:17
Metoprolol [Lopressor] 12.5 mg PO NOW STA
Abnormal Lab Results
10/15/24
22:41
WBC 12.5 H 10^3/uL
(4.8-10.8)
MPV 11.3 H fL
(7.4-10.4)
Absolute Lymphs (auto) 5.9 H 10^3/uL
(1.2-3.4)
Absolute Monos (auto) 0.9 H 10^3/uL
(0.1-0.6)
Carbon Dioxide 19 L mmol/L
(22-30)
BUN 24 H mg/dl
(7-17)
Glucose 122 H mg/dl
(70-99)
ALT 40 H U/L
(0-35)
Total Protein 8.6 H g/dl
(6.3-8.2)
Albumin 5.3 H g/dl
(3.5-5.0)
10/15/24 22:41
10/15/24 22:41
Vital Signs
Initial and Last Documented VS:
Initial Vital Signs
Temp Pulse Resp BP Pulse Ox
98.2 F 79 18 184/86 99
10/15/24 22:23 10/15/24 22:23 10/15/24 22:23 10/15/24 22:23 10/15/24 22:23
Last Documented Vital Signs
Temp Pulse Resp BP Pulse Ox
98.3 F 73 21 140/81 96
10/16/24 00:33 10/16/24 04:28 10/16/24 04:28 10/16/24 04:28 10/16/24 04:28
*Pulse Oximetry
SaO2: 98
Oxygen Mode of Delivery: Room air
Patient hypoxic: no
*Critical Care Note
Total Time (30-74mins, 75-104mins- exclusive of procedures): Not Applicable
ED Attending Note
-
Portions of this chart may have been created with voice recognition software.� Occasional wrong word or��sound alike� substitutions may have occurred due to the inherent limitations of voice recognition software.
Discharge Plan
Departure
Patient Disposition: Home (Routine Discharge)
Date of Disposition: 10/16/24
Time of Disposition: 03:48
Patient with high blood pressure during this ER visit?: Yes
Condition: Good
Discharge Problem:
Nausea, Indigestion
Instructions: Nausea and Vomiting, Adult (DC), BLOOD PRESSURE
Prescriptions:
No Action
amitriptyline 10 MG tablet
10 mg PO HS
escitalopram oxalate 10 MG tablet
10 mg PO DAILY
clonazepam 0.5 MG tablet
0.25 mg PO HS
glucosamine lundberg 2KCl-chondroit 1 EACH tablet
1 ea PO HS
glycopyrrolate 1 mg Tablet
1 mg PO DAILY
omeprazole 20 mg Capsule,Delayed Release(Dr/Ec)
20 mg PO DAILY
cholecalciferol (vitamin D3) [Vitamin D3] 25 mcg (1,000 unit) Capsule
25 mcg PO DAILY
Xarelto 10 mg Tablet
10 mg PO DAILY
ferrous sulfate [Feosol] 325 MG tablet
325 mg PO HS
ascorbic acid (vitamin C) [Vitamin C] 500 mg Tablet
500 mg PO DAILY
metformin 500 mg Tablet
500 mg PO BID
clonazepam 0.5 mg Tablet
0.25 mg PO BID
Patient Comments:
Patient is very sensitive to any changes in this medication. She has had withdrawal in the past due to not taking as prescribed. [facility] confirmed 0.25mg TID.
atorvastatin 80 mg Tablet
80 mg PO DAILY Qty: 30 0RF
aspirin 81 mg Tablet,Chewable
81 mg PO DAILY Qty: 30 0RF
metoprolol tartrate 25 mg Tablet
12.5 mg PO BID Qty: 60 0RF
Referrals:
Aixa Bernard PA-C [Family Provider, Internal Medicine]
Activity Restrictions/Additional Instructions:
Please follow-up with your primary care provider. Please continue to take your omeprazole.
PLEASE RETURN TO THE EMERGENCY DEPARTMENT SHOULD YOU DEVELOP CHEST PAIN, LEFT-SIDED SHOULDER AND ARM DISCOMFORT, INTRACTABLE NAUSEA, JAW PAIN, LIGHTHEADEDNESS, DIZZINESS, FAINTING SPELLS, OR ANY OTHER SIGNS OR SYMPTOMS WORRISOME TO YOU.
Interventions
Interventions:
*Risk Screen - Suicide Last Done: 10/15/24 22:28
*General Assessment Last Done: 10/15/24 22:28
*Neglect/Abuse Screening Last Done: 10/15/24 22:28
*ED- Fall Risk Assessment Last Done: 10/16/24 03:00
*ED COVID-19 Vaccine History Last Done: 10/15/24 22:28
*Nursing Disposition Last Done: 10/16/24 04:28
XQ-[id number]-Hznccocoqd Assessment Last Done: 10/16/24 02:28
Discharge Date and Time
Discharge Date/Time: 10/16/24 04:29
Print Language: [place]
[2024-10-16] MEDS: NSS 500 IV (02:00)
[2024-10-16] MEDS: COMPAZINE 5 MG IV (02:00)
[2024-10-16] MEDS: PROTONIX IV 40 MG IV (02:00)
[2024-10-16 02:06] VITALS: BMI 28.0
[2024-10-16 02:07] VITALS: BP 151/78
[2024-10-16] MEDS: LOPRESSOR 12.5 MG PO (02:41)
[2024-10-16 03:00] VITALS: BP 143/76
[2024-10-16 03:05] LABS: Troponin I < 0.012 ng/ml
[2024-10-16 04:00] VITALS: BP 140/81
[2024-10-16 04:28] VITALS: BP 140/81
== END 2024-10-16 04:29 | disposition home or self-care (01) ==
LOC: EMR 22:20
PROVIDERS: Emergency Medicine; Physician Assistant; EMERGENCY PHYSICIAN Emergency Medicine; FAMILY PHYSICIAN Physician Assistant Medical
DX: K30 Functional dyspepsia (principal); E11.9 Type 2 diabetes mellitus without complications; I10 Essential (primary) hypertension; E86.0 Dehydration; E78.00 Pure hypercholesterolemia, unspecified; F41.9 Anxiety disorder, unspecified; K21.9 Gastro-esophageal reflux disease without esophagitis; Z79.84 Long term (current) use of oral hypoglycemic drugs; Z79.82 Long term (current) use of aspirin; Z79.01 Long term (current) use of anticoagulants; Z86.73 Personal history of transient ischemic attack (TIA), and cerebral infarction without residual deficits; Z86.711 Personal history of pulmonary embolism; Z86.718 Personal history of other venous thrombosis and embolism; Z96.652 Presence of left artificial knee joint
CPT/HCPCS: 99284; 96374; 96375; 80053; 83690; 84484; 85025; 93005